=== PATIENT | female | born 1980 | race Caucasian/White ===

== ENCOUNTER 2016-03-15 15:13 | Emergency (ER) | payer SELFPAY ==
[~2016-03-15 15:13] MED LIST: BENZ100C PO; CETI10CA PO; CLON1TAB PO; CYCL10TA2 PO; FLUO40CA9 PO; FLUT9.9S NS; HYDR-2666 PO; HYDR-971 PO; LANS15CA66 PO; NAPR500T PO; ONDA4TAB7 PO; PARO10TA24 PO
[2016-03-15 15:19] VITALS: BP 149/91
--- NOTE | 2016-03-15 15:29 | PHYS DOC ---
Past Medical History Past Medical History: Anxiety, Depression, GERD, Migraines, Other Additional Past Medical Histor: seasonal allergies Past Surgical History: Tonsillectomy, Other Additional Past Surgical Histo: L knee "lateral release", LEFT OVARY CYST REMOVED, WISDOM TEETH Alcohol Use: Occasionally Drug Use: None Adult General Chief Complaint Chief Complaint: KNEE INJURY [facility] HPI Patient is a 35 year old female presents the emergency room with a complaint of left chest wall, left hip and left knee pain secondary to a slip and fall that occurred within an hour and a half prior to arrival here in the emergency department. Patient denies striking her head or loss of consciousness. She denies any previous fractured ribs or hip. She states she is chronically had problems with her left knee. Patient denies any history of bone forming disorders. Review of Systems Review of Systems Constitutional: Denies fever or chills [] Eyes: Denies change in visual acuity, redness, or eye pain [] HENT: Denies nasal congestion or sore throat [] Respiratory: Reports left chest wall pain. Denies shortness of breath. Cardiovascular: No additional information not addressed in HPI [] GI: Denies abdominal pain, nausea, vomiting, bloody stools or diarrhea [] : Denies dysuria or hematuria [] Musculoskeletal: Reports left hip and left knee pain. Integument: Denies rash or skin lesions [] Neurologic: Denies headache, focal weakness or sensory changes [] Endocrine: Denies polyuria or polydipsia [] Allergies Allergies Allergies Coded Allergies Type Severity Reaction Last Updated Verified cinnamon Allergy Severe tongue swelling 12/22/14 Yes morphine Adverse Reaction Intermediate hypertensive urgency/syncope 12/22/14 Yes Physical Exam Physical Exam Constitutional: Well developed, well nourished, no acute distress, non-toxic appearance. Patient walked into the examination room with a steady, unaided gait. HENT: Normocephalic, atraumatic, bilateral external ears normal, oropharynx moist, no oral exudates, nose normal. Eyes: PERRLA, EOMI, conjunctiva normal, no discharge. [] Neck: Normal range of motion, no tenderness, supple, no stridor. Cardiovascular:Heart rate regular rhythm, no murmur [] Lungs & Thorax: Patient's left lateral chest traore without any evidence of injury. There is tenderness to palpation to the posterior lateral region at the level of the fifth through eighth ribs. There is no palpable defect, deformity, instability or crepitus. Patient displays no evidence of respiratory distress or respiratory fatigue. Abdomen: Bowel sounds normal, soft, no tenderness, no masses, no pulsatile masses. [] Skin: Warm, dry, no erythema, no rash. [] Back: No tenderness, no CVA tenderness. [] Extremities: There is tenderness to palpation to the lateral aspect of left hip in her pain and tenderness to the left knee. There is no palpable defect, deformity, instability or crepitus in either region. Extremity is neurovascularly intact. Again, patient is able to bear weight and walk. Neurologic: Alert and oriented X 3, normal motor function, normal sensory function, no focal deficits noted. [] Psychologic: Affect normal, judgement normal, mood normal. [] Current Patient Data Vital Signs Vital Signs Date Time Temp Pulse Resp B/P Pulse Ox O2 Delivery O2 Flow Rate FiO2 03/15/16 15:19 97.6 110 22 97 Room Air 97.6 EKG EKG [] Radiology/Procedures Radiology/Procedures PA and dedicated left rib series were performed with adequate technique. There is no evidence of displaced rib fractures or pneumothorax. 2 views of patient's left hip with AP pelvis were performed with adequate technique. There is no evidence of fracture dislocation patient's pelvis or left hip. 3 views of left knee were performed with adequate technique. There is no evidence of acute bony process or soft tissue swelling. Course & Med Decision Making Course & Med Decision Making Pertinent Labs and Imaging studies reviewed. (See chart for details) [] Dragon Disclaimer Dragon Disclaimer This electronic medical record was generated, in whole or in part, using a voice recognition dictation system. Departure Departure Impression: Primary Impression: Fall Additional Impressions: Chest wall contusion Contusion Disposition: HOME, SELF-CARE Condition: GOOD Referrals: COLBY RAYO (PCP) Patient Instructions: Chest Contusion, [id number], Contusion, Nawn-gy-Laue, Fall Prevention and Home Safety, [id number] Additional Instructions: 1. The x-rays of your chest, left hip/pelvis and left knee here today showed no evidence of bony deformity. The x-rays will be reviewed by radiologist and you will be contacted if there is any discrepancy in these findings. 2. Take the medication as prescribed. 3. Review the discharge instructions provided for self care and reasons to return to the emergency department. 4. Apply ice packs every 2 hours for 20-30 minutes at a time. 5. Call your primary care doctor Thursday morning to schedule follow-up appointment for reevaluation. Scripts Hydrocodone/Apap 5-325 ([place] 5-325 Tablet)1 Each Tablet1 Tab PO PRN Q6HRS PRN PAIN #10 TAB Prov:JOSEPH DURANT 03/15/16 Orphenadrine Citrate 100 Mg Tablet.er100 Mg PO Q12HR muscle relaxer #14 Prov:JOSEPH DURANT 03/15/16 Naproxen Sodium (Anaprox Ds)550 Mg [id number] Mg PO Q12HR #20 Prov:JOSEPH DURANT 03/15/16 Problem Qualifiers Primary Impression: Fall Encounter type: initial encounter Qualified Code: W19.XXXA - Unspecified fall, initial encounter Additional Impressions: Chest wall contusion Encounter type: initial encounter Laterality: left Qualified Code: S20.212A - Contusion of left front wall of thorax, initial encounter Contusion Encounter type: initial encounter Contusion area: hip Laterality: left Qualified Code: S70.02XA - Contusion of left hip, initial encounter JOSEPH DURANT Mar 15, 2016 15:29
[2016-03-15] MEDS ORDERED: ORPH100T PO (16:24)
[2016-03-15] MEDS ORDERED: NAPR550T PO (16:24)
[2016-03-15] MEDS ORDERED: HYDR-971 PO (16:24)
--- NOTE | 2016-03-16 08:28 | RAD ---
Left knee radiographs History: Pain after slip and fall today. Comparison: 05/01/2013. Findings: AP, lateral, and oblique views of the left knee. No acute fracture or dislocation is identified. No joint effusion is seen. Mild tricompartment degeneration is present. Impression: No acute osseous traumatic injury identified.
--- NOTE | 2016-03-16 08:29 | RAD ---
Pelvis and left hip radiographs History: Pain, fall. Comparison: None. Findings: AP view of the pelvis. AP and frog-leg views of left hip. No acute fracture or dislocation is identified. Calcification in the right hemipelvis is favored to be phlebolith. Impression: No acute osseous traumatic injury identified.
--- NOTE | 2016-03-16 08:30 | RAD ---
Exam: PA chest and left rib radiographs, 5 total images History: Pain, fall. Comparison: 10/31/2015. Findings: Cardiomediastinal silhouette is within normal limits for size. Bilateral lung priest are free of focal infiltrate. No pleural effusion is seen. No displaced rib fractures are identified. Impression: No acute cardiopulmonary process.
== END 2016-03-15 16:31 | disposition home or self-care (01) ==
LOC: ER 15:13
DX: S20.219A Contusion of unspecified front wall of thorax, initial encounter (principal); M25.552 Pain in left hip; M25.562 Pain in left knee; K21.9 Gastro-esophageal reflux disease without esophagitis; G43.009 Migraine without aura, not intractable, without status migrainosus; Z88.5 Allergy status to narcotic agent; Z91.018 Allergy to other foods; W01.0XXA Fall on same level from slipping, tripping and stumbling without subsequent striking against object, initial encounter; Y93.89 Activity, other specified; Y99.8 Other external cause status; Y92.89 Other specified places as the place of occurrence of the external cause
CPT/HCPCS: 71101; 73502; 73562; 99284

== ENCOUNTER 2016-03-16 01:57 | Emergency (ER) | payer SELFPAY ==
[~2016-03-16] VITALS: Ht 172.7 cm; Wt 99.8 kg
[~2016-03-16 01:57] MED LIST changes: +NAPR550T PO; +ORPH100T PO
[2016-03-16 02:05] VITALS: BP 147/97
--- NOTE | 2016-03-16 02:21 | PHYS DOC ---
Past Medical History Past Medical History: Anxiety, Depression, GERD, Migraines, Other Additional Past Medical Histor: seasonal allergies Past Surgical History: Tonsillectomy, Other Additional Past Surgical Histo: L knee "lateral release", LEFT OVARY CYST REMOVED, WISDOM TEETH Alcohol Use: Occasionally Drug Use: None Adult General Chief Complaint Chief Complaint: MULTIPLE COMPLAINTS [facility] HPI This is a 35-year-old female who was just seen earlier today after having a fall onto her left side and having significant left rib pain and left hip pain. She had x-rays done at that time which were negative for any acute fracture or abnormality. She was also a given a prescription for hydrocodone, naproxen, and a muscle relaxant. Patient states she has been taking this but still is having continued pain. She presents for reevaluation of her continued pain complaints. She denies any significant change in her symptoms prior to her first evaluation. She denies any chest pain or shortness of breath. She denies any headache. She denies hitting her head or having any loss consciousness with her fall. Review of Systems Review of Systems Constitutional: Denies fever or chills [] Eyes: Denies change in visual acuity, redness, or eye pain [] HENT: Denies nasal congestion or sore throat [] Respiratory: Denies cough or shortness of breath [] Cardiovascular: No additional information not addressed in HPI [] GI: Denies abdominal pain, nausea, vomiting, bloody stools or diarrhea [] : Denies dysuria or hematuria [] Musculoskeletal: Denies back pain, has joint pain [] Integument: Denies rash or skin lesions [] Neurologic: Denies headache, focal weakness or sensory changes [] Endocrine: Denies polyuria or polydipsia [] Allergies Allergies Allergies Coded Allergies Type Severity Reaction Last Updated Verified cinnamon Allergy Severe tongue swelling 12/22/14 Yes morphine Adverse Reaction Intermediate hypertensive urgency/syncope 12/22/14 Yes Physical Exam Physical Exam Constitutional: Well developed, well nourished, no acute distress, non-toxic appearance. [] HENT: Normocephalic, atraumatic, bilateral external ears normal, oropharynx moist, no oral exudates, nose normal. [] Eyes: PERRLA, EOMI, conjunctiva normal, no discharge. [] Neck: Normal range of motion, no tenderness, supple, no stridor. [] Cardiovascular:Heart rate regular rhythm, no murmur [] Lungs & Thorax: Bilateral breath sounds clear to auscultation, moderate tenderness to palpation along the left lateral chest wall with no palpable deformity or crepitus [] Abdomen: Bowel sounds normal, soft, no tenderness, no masses, no pulsatile masses. [] Skin: Warm, dry, no erythema, no rash. [] Back: No tenderness, no CVA tenderness. [] Extremities: Moderate tenderness to the left hip with no palpable deformity or bruising seen, no cyanosis, no clubbing, ROM intact, no edema. [] Neurologic: Alert and oriented X 3, normal motor function, normal sensory function, no focal deficits noted. [] Psychologic: Affect normal, judgement normal, mood normal. [] Current Patient Data Vital Signs Vital Signs Date Time Temp Pulse Resp B/P Pulse Ox O2 Delivery O2 Flow Rate FiO2 03/16/16 02:05 99.0 95 20 98 Room Air 99.0 EKG EKG [] Radiology/Procedures Radiology/Procedures [] Course & Med Decision Making Course & Med Decision Making Pertinent Labs and Imaging studies reviewed. (See chart for details) 35-year-old female who is having continued left rib pain and left hip pain after being evaluated earlier today will be discharged with instruction to continue to take her medications that she was initially prescribed. I will not be prescribing any further pain meds for this patient as she has an adequate supply at this time. I counseled her at length that she is to follow closely in the next several days for her symptoms. She is agreeable to this plan and will rest today and take her medications as prescribed. She was discharged without incident. Dragon Disclaimer Dragon Disclaimer This electronic medical record was generated, in whole or in part, using a voice recognition dictation system. Departure Departure Impression: Primary Impression: Rib pain Additional Impression: Hip pain Disposition: 01 HOME, SELF-CARE Condition: STABLE Referrals: COLBY RAYO (PCP) Patient Instructions: Hip Pain Additional Instructions: Please follow up with your primary doctor in the next 2-3 days for your symptoms. Take your pain medication as prescribed. Return to the ER in the next 2-3 days if your symptoms should worsen. Avoid any strenuous activities. Problem Qualifiers SAE VERA DO Mar 16, 2016 02:21
== END 2016-03-16 02:29 | disposition home or self-care (01) ==
LOC: ER 02:20
DX: R07.81 Pleurodynia (principal); M25.552 Pain in left hip; K21.9 Gastro-esophageal reflux disease without esophagitis; G43.009 Migraine without aura, not intractable, without status migrainosus; F32.9 Major depressive disorder, single episode, unspecified; F41.9 Anxiety disorder, unspecified; Z88.5 Allergy status to narcotic agent; Z91.018 Allergy to other foods
CPT/HCPCS: 99281

== ENCOUNTER 2016-06-18 17:16 | Emergency (ER) | payer SELFPAY ==
[2016-06-18 17:18] VITALS: BP 161/100
--- NOTE | 2016-06-18 17:32 | PHYS DOC ---
Past Medical History Past Medical History: Anxiety, Depression, GERD, Migraines, Other Additional Past Medical Histor: seasonal allergies Past Surgical History: Tonsillectomy, Other Additional Past Surgical Histo: L knee "lateral release", LEFT OVARY CYST REMOVED, WISDOM TEETH Alcohol Use: Occasionally Drug Use: None Adult General Chief Complaint Chief Complaint: HAND PROBLEM HPI HPI Patient is a 36 year old female with history of anxiety, acid reflex and depression who presents today with moderate right lateral hand pain that began 3 weeks ago after bottle of shampoo failed on 8. Review of Systems Review of Systems Constitutional: Denies fever or chills [] Musculoskeletal: Right hand pain Integument: Denies rash or skin lesions [] Neurologic: Denies headache, focal weakness or sensory changes [] Endocrine: Denies polyuria or polydipsia [] Allergies Allergies Allergies Coded Allergies Type Severity Reaction Last Updated Verified cinnamon Allergy Severe tongue swelling 12/22/14 Yes morphine Adverse Reaction Intermediate hypertensive urgency/syncope 12/22/14 Yes Physical Exam Physical Exam Constitutional: Well developed, well nourished, no acute distress, non-toxic appearance. [] Skin: Warm, dry, no erythema, no rash. [] Back: No tenderness, no CVA tenderness. [] Extremities: Right hand with no obvious deformity. Tenderness on palpation of the right fifth metacarpal. Full range of motion to the right hand and fingers. Adequate medial, radial and ulnar sensation to the right hand. +2 right radial pulse. Cap refill less than 2 seconds the right upper extremity. Sensation intact to the right upper extremity. Neurologic: Alert and oriented X 3, normal motor function, normal sensory function, no focal deficits noted. [] Psychologic: Affect normal, judgement normal, mood normal. [] Current Patient Data Vital Signs Vital Signs Date Time Temp Pulse Resp B/P Pulse Ox O2 Delivery O2 Flow Rate FiO2 06/18/16 17:18 97.7 67 18 99 Room Air 97.7 EKG EKG [] Radiology/Procedures Radiology/Procedures [] Course & Med Decision Making Course & Med Decision Making Pertinent Labs and Imaging studies reviewed. (See chart for details) Patient is in the ED with complaints of right hand contusion after bottle of shampoo fell on it 3 weeks ago. Right hand x-rays interpreted by I negative for any acute findings. Patient was discharged with instructions to follow-up with her own orthopedic doctor which she stated she has. Ice/ elevation of the extremity encouraged. Dragon Disclaimer Dragon Disclaimer This electronic medical record was generated, in whole or in part, using a voice recognition dictation system. Departure Departure Impression: Primary Impression: Hand contusion Disposition: 01 HOME, SELF-CARE Condition: STABLE Referrals: COLBY RAYO (PCP) ALFREDO GIVENS II, MD Called the provided orthopedic doctor tomorrow morning and get a follow-up appointment. Patient Instructions: Contusion Additional Instructions: You were seen for right hand contusion after a bottle of shampoo fell on the hand. Your x-ray is normal. Please follow-up with the orthopedic doctor. Ice and elevate the affected extremity. Scripts Methylprednisolone (Medrol)4 Mg Tab.ds.pk1 Pkg PO UD #1 PKG Prov:ISABELA NIXON APRN 06/18/16 Acetaminophen With Codeine (Tylenol With Codeine #3 Tablet)1 Each Tablet1 Tab PO PRN Q6HRS PRN PAIN #10 TAB Prov:ISABELA NIXON APRN 06/18/16 Naproxen 500 Mg Tablet.dr1 Tab PO BID #60 TAB Ref 2 Prov:ISABELA NIXON APRN 06/18/16 Problem Qualifiers Primary Impression: Hand contusion Encounter type: initial encounter Laterality: right Qualified Code: S60.221A - Contusion of right hand, initial encounter ISABELA NIXON APRN Jun 18, 2016 17:32
[2016-06-18] MEDS ORDERED: ACET-704 PO (17:38)
[2016-06-18] MEDS ORDERED: METH4TAB2 PO (17:38)
[2016-06-18] MEDS ORDERED: NAPR500T8 PO (17:38)
--- NOTE | 2016-06-19 08:19 | RAD ---
Indication injury. Pain particularly fifth metacarpal. AP oblique and lateral views of the right hand were obtained. No acute or significant bony finding involving the hand is seen
== END 2016-06-18 17:46 | disposition home or self-care (01) ==
LOC: ER 17:16
DX: S60.221A Contusion of right hand, initial encounter (principal); G43.909 Migraine, unspecified, not intractable, without status migrainosus; Z88.5 Allergy status to narcotic agent; Z91.018 Allergy to other foods; W20.8XXA Other cause of strike by thrown, projected or falling object, initial encounter; Y93.89 Activity, other specified; Y92.89 Other specified places as the place of occurrence of the external cause; Y99.8 Other external cause status
CPT/HCPCS: 73130; 99284

== ENCOUNTER 2016-09-16 18:27 | Emergency (ER) | payer SELFPAY ==
[~2016-09-16] VITALS: Ht 172.7 cm; Wt 99.8 kg
[~2016-09-16 18:27] MED LIST changes: +ACET-704 PO; -HYDR-2666 PO; +HYDR-2758 PO; -LANS15CA66 PO; +LANS15CA78 PO; +METH4TAB2 PO; +NAPR500T8 PO; -PARO10TA24 PO; +PARO10TA57 PO
[2016-09-16 18:51] VITALS: BP 146/87
[2016-09-16] MEDS ORDERED: HYDR-971 PO (19:30)
[2016-09-16] MEDS ORDERED: CYCL10TA2 PO (19:30)
--- NOTE | 2016-09-16 19:30 | PHYS DOC ---
Past Medical History Past Medical History: Anxiety, Depression, GERD, Hypertension, Migraines, Other Additional Past Medical Histor: seasonal allergies Past Surgical History: Tonsillectomy, Other Additional Past Surgical Histo: L knee "lateral release", LEFT OVARY CYST REMOVED, WISDOM TEETH Alcohol Use: Occasionally Drug Use: None Adult General Chief Complaint Chief Complaint: PAIN CONTROL HPI HPI Patient is a 36 year old female with history of anxiety depression and hypertension who presents today with moderate bilateral low back pain that began on Thursday when she fell down on her buttocks. Patient denies any loss of consciousness. She saw her PCP and was given prescription for a muscle relaxer Chlorzoxaxon. Patient states it is not helping. Patient states she has some pain radiating to the left lower extremity. Denies any loss of bowel bladder function, denies any numbness or tingling to bilateral lower extremities. Review of Systems Review of Systems Constitutional: Denies fever or chills [] Eyes: Denies change in visual acuity, redness, or eye pain [] Musculoskeletal: Low back pain Integument: Denies rash or skin lesions [] Neurologic: Denies headache, focal weakness or sensory changes [] Endocrine: Denies polyuria or polydipsia [] Allergies Allergies Allergies Coded Allergies Type Severity Reaction Last Updated Verified cinnamon Allergy Severe tongue swelling 12/22/14 Yes morphine Adverse Reaction Intermediate hypertensive urgency/syncope 12/22/14 Yes Physical Exam Physical Exam Constitutional: Well developed, well nourished, no acute distress, non-toxic appearance. [] HENT: Normocephalic, atraumatic, bilateral external ears normal, oropharynx moist, no oral exudates, nose normal. [] Skin: Warm, dry, no erythema, no rash. [] Back: Diffuse paraspinal muscle tenderness to bilateral lumbar spine, slight coccyx tenderness, no CVA tenderness. [] Extremities: No tenderness, no cyanosis, no clubbing, ROM intact, no edema. [] Neurologic: Alert and oriented X 3, normal motor function, normal sensory function, no focal deficits noted. [] Psychologic: Affect normal, judgement normal, mood normal. [] Current Patient Data Vital Signs Vital Signs Date Time Temp Pulse Resp B/P (MAP) Pulse Ox O2 Delivery O2 Flow Rate FiO2 09/16/16 18:51 97.9 77 20 95 Room Air 97.9 EKG EKG [] Radiology/Procedures Radiology/Procedures [] Course & Med Decision Making Course & Med Decision Making Pertinent Labs and Imaging studies reviewed. (See chart for details) Patient has lumbar contusion after falling a couple days ago. I offered her lumbar x-rays, she declined due to cost. She was given cyclobenzaprine and 10 tablets of [place] and encouraged to take [id number] naproxen. Provided return precautions and discharged in stable condition. Dragon Disclaimer Dragon Disclaimer This electronic medical record was generated, in whole or in part, using a voice recognition dictation system. Departure Departure Impression: Primary Impression: Fall Additional Impressions: Back pain Lumbar contusion Disposition: HOME, SELF-CARE Condition: STABLE Referrals: SID VEGA JR, MD (PCP) Follow-up with your doctor in 1-2 weeks Patient Instructions: Back Pain, Adult, Contusion Additional Instructions: You were seen for low back pain after falling. You can apply heat to ice to the affected area. Follow-up with your doctor in the next 1-2 weeks. Come back to the ED if symptoms worsen. Scripts Cyclobenzaprine Hcl (CYCLOBENZAPRINE HCL) 10 Mg Tablet 1 TAB PO TID, #30 TAB Prov: ISABELA NIXON APRN 09/16/16 Hydrocodone/Apap 5-325 ([place] 5-325 TABLET) 1 Each Tablet 1 TAB PO PRN Q6HRS Y for PAIN, #10 TAB 0 Refills Prov: ISABELA NIXON APRN 09/16/16 Problem Qualifiers Primary Impression: Fall Encounter type: initial encounter Qualified Codes: W19.XXXA - Unspecified fall, initial encounter Additional Impressions: Back pain Back pain location: low back pain Chronicity: acute Back pain laterality: bilateral Sciatica presence: with sciatica Sciatica laterality: sciatica of left side Qualified Codes: M54.42 - Lumbago with sciatica, left side Lumbar contusion Encounter type: initial encounter Qualified Codes: S30.0XXA - Contusion of lower back and pelvis, initial encounter ISABELA NIXON BRUSH HAND Sep 16, 2016 19:30
== END 2016-09-16 19:35 | disposition home or self-care (01) ==
LOC: ER 18:27
DX: S30.0XXA Contusion of lower back and pelvis, initial encounter (principal); I10 Essential (primary) hypertension; K21.9 Gastro-esophageal reflux disease without esophagitis; G43.909 Migraine, unspecified, not intractable, without status migrainosus; Z88.5 Allergy status to narcotic agent; Z91.018 Allergy to other foods; W18.39XA Other fall on same level, initial encounter; Y93.89 Activity, other specified; Y99.8 Other external cause status; Y92.89 Other specified places as the place of occurrence of the external cause
CPT/HCPCS: 99283

== ENCOUNTER 2016-09-19 06:43 | Emergency (ER) | payer SELFPAY ==
[2016-09-19] MEDS ORDERED: IV NORMAL SALINE 1000ML BAG 1,000 ML IV SCH (07:10)
[2016-09-19] MEDS ORDERED: 0.9 % SODIUM CHLORIDE 10 ML DISP.SYRIN. IV PRN (07:15)
--- NOTE | 2016-09-19 07:18 | PHYS DOC ---
Past Medical History Past Medical History: Anxiety, Depression, GERD, Hypertension, Migraines, Other Additional Past Medical Histor: seasonal allergies Past Surgical History: Tonsillectomy, Other Additional Past Surgical Histo: L knee "lateral release", LEFT OVARY CYST REMOVED, WISDOM TEETH Smoking: Cigarettes, 1 Pack Per Day Alcohol Use: Occasionally Drug Use: None Adult General Chief Complaint Chief Complaint: ABDOMINAL PAIN HPI HPI Patient is a pleasant 36-year-old female with a history of left ovarian cyst requiring surgical removal, resides. Umbilical pain that woke up this morning about 3 AM. She describes the pain as constant around the umbilicus with radiation to the right flank. She describes it as sharp and is worse with direct pressure and movement. It has not cried any nausea, vomiting or diarrhea. She has no UTI symptoms. sHe denies any fever, chills, sick contacts, travel outside the country, or prior history of the same. She states that nothing makes anything better. She also claims she is very tired and fatigued and feels generally very weak secondary to sleeping. She was brought in by her mother this morning or see in the lobby. My abdominal pain differential includes but not limited to ectopic , UTI, pyonephritis, cholecystitis, cholelithiasis, pancreatitis, appendicitis, small bowel obstruction, large bowel obstruction, diverticulosis, Diverticulum, intussusception, volvulus, irritable bowel disease, Crohn's or ulcerative colitis,, Review of Systems Review of Systems Constitutional: Denies fever or chills [] Eyes: Denies change in visual acuity, redness, or eye pain [] HENT: Denies nasal congestion or sore throat [] Respiratory: Denies cough or shortness of breath [] Cardiovascular: No additional information not addressed in HPI [] GI: Main complaint is abdominal pain with nausea but no vomiting diarrhea or bloody stools or constipation. : Denies dysuria or hematuria [] Musculoskeletal: Denies back pain or joint pain [] Integument: Denies rash or skin lesions [] Neurologic: Denies headache, focal weakness or sensory changes [] Endocrine: Denies polyuria or polydipsia [] Current Medications Current Medications Current Medications Medications (Trade) Dose Ordered Sig/Claribel Start Time Stop Time Status Last Admin Dose Admin Fentanyl Citrate (Fentanyl 2ml Vial) 50 mcg PRN Q15MIN PRN 09/19/16 07:15 09/20/16 07:14 09/19/16 07:37 50 MCG Iohexol (Omnipaque 300 Mg/ml) 75 ml 1X ONCE 09/19/16 07:30 09/19/16 07:31 DC 09/19/16 09:07 75 ML Lorazepam (Ativan) 1 mg 1X ONCE 09/19/16 07:15 09/19/16 07:16 DC 09/19/16 07:37 1 MG Phenazopyridine HCl (Pyridium) 200 mg 1X ONCE 09/19/16 09:15 09/19/16 09:16 DC 09/19/16 09:15 200 MG Sodium Chloride (Normal Saline Flush) 10 ml QSHIFT PRN 09/19/16 07:15 Allergies Allergies Allergies Coded Allergies Type Severity Reaction Last Updated Verified cinnamon Allergy Severe tongue swelling 12/22/14 Yes morphine Adverse Reaction Intermediate hypertensive urgency/syncope 12/22/14 Yes Physical Exam Physical Exam Vital signs evaluated patient noted to be hypertensive Constitutional: Well developed, well nourished, patient is very anxious but nontoxic in appearance HENT: Normocephalic, atraumatic, bilateral external ears normal, oropharynx moist, no oral exudates, nose normal. [] Eyes: PERRLA, EOMI, conjunctiva normal, no discharge. [] Cardiovascular:Heart rate regular rhythm, no murmur [] Lungs & Thorax: Bilateral breath sounds clear to auscultation [] Abdomen: Bowel sounds normal demonstrates tenderness or umbilical region without involuntary guarding rebound or organomegaly. No noted pulsatile masses. No Brown Louie sign no murmur. Respiratory is. Patient Skin: Warm, dry, no erythema, no rash. [] Back: No tenderness, no CVA tenderness. [] Extremities: No tenderness, no cyanosis, no clubbing, ROM intact, no edema. [] Neurologic: Alert and oriented X 3, normal motor function, normal sensory function, no focal deficits noted. [] Psychologic: She is very anxious speaks very slowly very teary-eyed Current Patient Data Vital Signs Vital Signs Date Time Temp Pulse Resp B/P (MAP) Pulse Ox O2 Delivery O2 Flow Rate FiO2 09/19/16 07:37 18 09/19/16 07:02 98.6 95 140/95 (110) 98 Room Air 98.6 Lab Values Laboratory Tests Test 09/19/16 07:00 09/19/16 07:52 09/19/16 08:45 White Blood Count 9.7 x10^3/uL (4.0-11.0) Red Blood Count 4.97 x10^6/uL (3.50-5.40) Hemoglobin 10.8 g/dL (12.0-15.5) L Hematocrit 34.5 % (36.0-47.0) L Mean Corpuscular Volume 69 fL (79-100) L Mean Corpuscular Hemoglobin 22 pg (25-35) L Mean Corpuscular Hemoglobin Concent 31 g/dL (31-37) Red Cell Distribution Width 18.9 % (11.5-14.5) H Platelet Count 414 x10^3/uL (140-400) H Neutrophils (%) (Auto) 52 % (31-73) Lymphocytes (%) (Auto) 36 % (24-48) Monocytes (%) (Auto) 6 % (0-9) Eosinophils (%) (Auto) 5 % (0-3) H Basophils (%) (Auto) 1 % (0-3) Neutrophils # (Auto) 5.1 x10^3uL (1.8-7.7) Lymphocytes # (Auto) 3.5 x10^3/uL (1.0-4.8) Monocytes # (Auto) 0.6 x10^3/uL (0.0-1.1) Eosinophils # (Auto) 0.5 x10^3/uL (0.0-0.7) Basophils # (Auto) 0.1 x10^3/uL (0.0-0.2) Platelet Estimate Pending Sodium Level 139 mmol/L (136-145) Potassium Level 3.6 mmol/L (3.5-5.1) Chloride Level 101 mmol/L (98-107) Carbon Dioxide Level 28 mmol/L (21-32) Anion Gap 10 (6-14) Blood Urea Nitrogen 13 mg/dL (7-20) Creatinine 0.9 mg/dL (0.6-1.0) Estimated GFR (Cockcroft-Gault) 70.5 Glucose Level 123 mg/dL (70-99) H Calcium Level 9.6 mg/dL (8.5-10.1) Total Bilirubin 0.2 mg/dL (0.2-1.0) Direct Bilirubin 0.1 mg/dL (0.0-0.2) Aspartate Amino Transferase (AST) 14 U/L (15-37) L Alanine Aminotransferase (ALT) 12 U/L (14-59) L Alkaline Phosphatase 88 U/L (46-116) Troponin I Quantitative < 0.017 ng/mL (0.000-0.055) Total Protein 7.9 g/dL (6.4-8.2) Albumin 4.1 g/dL (3.4-5.0) Lipase 157 U/L (73-393) Thyroid Stimulating Hormone (TSH) 2.820 uIU/mL (0.358-3.74) POC Urine HCG, Qualitative Hcg negative (Negative) Urine Collection Type Unknown Urine Color [place] Urine Clarity Clear Urine pH 5.0 Urine Specific [place] >=1.030 Urine Protein Negative mg/dL (NEG-TRACE) Urine Glucose (UA) Negative mg/dL (NEG) Urine Ketones (Stick) Trace mg/dL (NEG) Urine Blood Small (NEG) Urine Nitrite Positive (NEG) Urine Bilirubin Small (NEG) Urine Urobilinogen Dipstick 1.0 mg/dL (0.2 mg/dL) Urine Leukocyte Esterase Small (NEG) Urine RBC 3-5 /HPF (0-2) Urine WBC Occ /HPF (0-4) Urine Squamous Epithelial Cells Mod /LPF Urine Bacteria Few /HPF (0-FEW) Urine Mucus Mod /LPF Laboratory Tests 09/19/16 07:00 Laboratory Tests 09/19/16 07:00 EKG EKG [] EKG timed 7:35 AM 09/19/[address] Edwards demonstrates normal sinus rhythm heart rate of 82 LA interval of 140 QRS 90 QTC of 445 normal sinus rhythm normal looking EKG with some nonspecific T-wave inversions in V1 and some T-wave inversions in lead 3 otherwise normal looking EKG. Radiology/Procedures Radiology/Procedures [] [facility] [address] [place], [place] [id number] IMAGING REPORT Signed PATIENT: BRENDA DE LA TORRE ACCOUNT: [id number] : 1980 LOCATION: ER AGE: 36 SEX: F EXAM STATUS: REG ER ORD. PHYSICIAN: YAHIR EDWARDS MD REASON: periumbilical pain PROCEDURE: CT ABD PELV W/ IV CONTRST ONLY INDICATION: Abdominal pain COMPARISON: 09/15/2015 TECHNIQUE: Axial CT images were obtained through the abdomen and pelvis with intravenous contrast. Coronal reformations were processed. FINDINGS: Abdomen: Chest Base: Partially imaged without gross abnormality. Vessels: No abdominal aortic aneurysm. Liver/Biliary: 18 mm low-attenuation lesion right lobe of liver again seen. No intrahepatic bile duct dilation. Pancreas: No gross abnormality. Spleen: Normal. Kidneys/Adrenal: No hydronephrosis. GI: No free air. No bowel dilation to suggest obstruction. The appendix is not grossly enlarged. Pelvis: Bladder: Partially distended without gross abnormality. Low-attenuation lesion in the right adnexa measuring approximately 76 x 65 mm. Low-attenuation left adnexal lesion measuring approximately 3 cm. IMPRESSION: 1. No evidence of bowel obstruction or appendicitis. 2. Right greater than left low-attenuation adnexal lesions are identified. Would obtain a pelvic ultrasound with transabdominal and transvaginal technique to further evaluate. Could be cystic lesions but given that some of the regions appear higher in attenuation a complex component with either debris or solid portion remains possible. 3. Low attenuation lesion of the right lobe of the liver is again identified and incompletely evaluated on this exam. Focused ultrasound may be helpful to assess whether this is solid or cystic on a nonemergent basis. Alternatively liver MRI could BE obtained PQRS Compliance Statement: One or more of the following individualized dose reduction techniques were utilized for this examination: 1. Automated exposure control 2. Adjustment of the mA and/or kV according to patient size 3. Use of iterative reconstruction technique DICTATED and SIGNED BY: DUSTIN CHRISTENSEN MD DATE: 09/19/16 0934 CC: YAHIR EDWARDS MD; SID VEGA JR, MD ~ Course & Med Decision Making Course & Med Decision Making Pertinent Labs and Imaging studies reviewed. (See chart for details) Time is now 8:05 AM patient's chart was reviewed EKG reviewed, white blood cell count CBC reviewed them straight mild anemia. CMP is been reviewed demonstrate a mild hyperglycemia. Troponin is negative. Through the differential diagnosis for gentle is weakness hypothyroidism as been ruled out, with a normal TSH I doubt cardiac ischemia given duration of symptoms and EKG and negative troponin there is no evidence of hypo or hyperkalemia or other electrolyte abnormality is be contributing to her symptoms. Patient tells me that their symptoms given during CC are improved. 8:50 a.m. patient finally was able to yield a urine sample for us to get a urine test to get a CAT scan completed. Urine hCG is negative doubt ectopic Time is now [address] scan abdomen and pelvis is return if demonstrates no kidney stones, no appendicitis, no bowel obstruction. There is a complex series of lesions within the right ovarian structure. Patient has a known history of ovarian cysts in the past. Patient also has a small nodule within the lower lung bases but noted last time she had a study. It is remarkably unchanged although not completely visualized. In both cases patient should have continued studies such as an ultrasound of her right ovary as an outpatient. Patient tells me that their symptoms given during CC are improved. We reviewed labs and radiology reports with patient specifically went over CAT scan needing ultrasound has a follow-up as an outpatient Impression: Right ovarian cyst, UTI, nonspecific nodules and liver. diPosition: PCP follow-up with empiric antibiotics for UTI. Culture will be sent. Precautions given Dragon Disclaimer Dragon Disclaimer This electronic medical record was generated, in whole or in part, using a voice recognition dictation system. Departure Departure Impression: Primary Impression: Abdominal pain Additional Impression: UTI (urinary tract infection) Disposition: 01 HOME, SELF-CARE Condition: IMPROVED Referrals: SID VEGA JR, MD (PCP) Patient Instructions: Urinary Tract Infection Additional Instructions: Treatment for any new or increasing symptoms or Increasing pain with fever greater than 12.2 despite treatment or if you have any questions or concerns. Scripts Phenazopyridine Hcl (PYRIDIUM) 200 Mg Tablet 200 MG PO TID for 3 Days, #9 TAB Prov: YAHIR EDWARDS MD 09/19/16 Naproxen (NAPROSYN) 500 Mg Tablet 1 TAB PO BID, #14 TAB 1 Refill Prov: YAHIR EDWARDS MD 09/19/16 Ciprofloxacin Hcl (CIPRO) 500 Mg Tablet 1 TAB PO BID, #20 TAB Prov: YAHIR EDWARDS MD 09/19/16 Problem Qualifiers YAHIR EDWARDS MD Sep 19, 2016 07:18
[2016-09-19 07:20] LABS: BASO # 0.1 x10^3/uL (0.0-0.2); BASO % 1 % (0-3); EOS % 5 % (0-3); HEMATOCRIT 34.5 % (36.0-47.0); HEMOGLOBIN 10.8 g/dL (12.0-15.5); LYMPH # 3.5 x10^3/uL (1.0-4.8); LYMPH % 36 % (24-48); MEAN CORPUSCULAR HEMOGLOBIN 22 pg (25-35); MEAN CORPUSCULAR HGB CONC 31 g/dL (31-37); MEAN CORPUSCULAR VOLUME 69 fL (79-100); MONO % 6 % (0-9); NEUT % 52 % (31-73); PLATELET COUNT 414 x10^3/uL (140-400); RED BLOOD COUNT 4.97 x10^6/uL (3.50-5.40); RED CELL DISTRIBUTION WIDTH 18.9 % (11.5-14.5); WHITE BLOOD COUNT 9.7 x10^3/uL (4.0-11.0)
[2016-09-19] MEDS ORDERED: IOHEXOL 300 MG/ML 75 ML VIAL IV ONE (07:30)
[2016-09-19 07:37] LABS: CALCIUM 9.6 mg/dL (8.5-10.1); CREATININE 0.9 mg/dL (0.6-1.0); GFR 70.5; POTASSIUM 3.6 mmol/L (3.5-5.1)
[2016-09-19] MEDS: fentaNYL PF VIAL 100 MCG/2 ML VIAL IV PRN ×2 (07:37→10:00)
[2016-09-19 07:43] LABS: ALBUMIN 4.1 g/dL (3.4-5.0); DIRECT BILIRUBIN 0.1 mg/dL (0.0-0.2); TOTAL BILIRUBIN 0.2 mg/dL (0.2-1.0); TOTAL PROTEIN 7.9 g/dL (6.4-8.2)
[2016-09-19 08:56] LABS: BILIRUBIN,URINE SMALL (NEG); GLUCOSE,URINE NEGATIVE (NEG); NITRITE,URINE POSITIVE (NEG); PROTEIN,URINE NEGATIVE (NEG-TRACE)
[2016-09-19] MEDS ORDERED: PHENAZOPYRIDINE 200 MG TABLET. PO ONE (09:15)
[2016-09-19 09:27] LABS: SQUAMOUS EPITHELIAL CELL,UR MOD /LPF
[2016-09-19 09:28] LABS: WBC,URINE OCC /HPF (0-4)
[2016-09-19 09:42] LABS: BACTERIA,URINE FEW /HPF (0-FEW)
--- NOTE | 2016-09-19 09:46 | RAD ---
INDICATION: Abdominal pain COMPARISON: 09/15/2015 TECHNIQUE: Axial CT images were obtained through the abdomen and pelvis with intravenous contrast. Coronal reformations were processed. FINDINGS: Abdomen: Chest Base: Partially imaged without gross abnormality. Vessels: No abdominal aortic aneurysm. Liver/Biliary: 18 mm low-attenuation lesion right lobe of liver again seen. No intrahepatic bile duct dilation. Pancreas: No gross abnormality. Spleen: Normal. Kidneys/Adrenal: No hydronephrosis. GI: No free air. No bowel dilation to suggest obstruction. The appendix is not grossly enlarged. Pelvis: Bladder: Partially distended without gross abnormality. Low-attenuation lesion in the right adnexa measuring approximately 76 x 65 mm. Low-attenuation left adnexal lesion measuring approximately 3 cm. IMPRESSION: 1. No evidence of bowel obstruction or appendicitis. 2. Right greater than left low-attenuation adnexal lesions are identified. Would obtain a pelvic ultrasound with transabdominal and transvaginal technique to further evaluate. Could be cystic lesions but given that some of the regions appear higher in attenuation a complex component with either debris or solid portion remains possible. 3. Low attenuation lesion of the right lobe of the liver is again identified and incompletely evaluated on this exam. Focused ultrasound may be helpful to assess whether this is solid or cystic on a nonemergent basis. Alternatively liver MRI could BE obtained PQRS Compliance Statement: One or more of the following individualized dose reduction techniques were utilized for this examination: 1. Automated exposure control 2. Adjustment of the mA and/or kV according to patient size 3. Use of iterative reconstruction technique
[2016-09-19 10:01] VITALS: BP 113/59
[2016-09-19] MEDS ORDERED: CIPR500T94 PO (10:07)
[2016-09-19] MEDS ORDERED: NAPR500T PO (10:07)
[2016-09-19] MEDS ORDERED: PHEN-318 PO (10:07)
--- NOTE | 2016-09-19 10:20 | EKG ---
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
[2016-09-19 10:35] LABS: ANISOCYTOSIS SLIGHT; MICROCYTOSIS PRESENT; PLT ESTIMATE ADEQUATE (ADEQUATE)
== END 2016-09-19 10:29 | disposition home or self-care (01) ==
LOC: ER 06:43
DX: N39.0 Urinary tract infection, site not specified (principal); D64.9 Anemia, unspecified; R73.9 Hyperglycemia, unspecified; F41.9 Anxiety disorder, unspecified; F32.9 Major depressive disorder, single episode, unspecified; K21.9 Gastro-esophageal reflux disease without esophagitis; I10 Essential (primary) hypertension; G43.909 Migraine, unspecified, not intractable, without status migrainosus; F17.210 Nicotine dependence, cigarettes, uncomplicated; Z88.5 Allergy status to narcotic agent; Z91.018 Allergy to other foods
CPT/HCPCS: 36415; 74177; 80048; 80076; 81001; 81025; 83690; 84443; 84484; 85007; 85027; 87086; 93005; 96361; 96374; 96375; 96376; 99285; J2060; J3010; J7030; Q9967

== ENCOUNTER 2016-10-08 12:02 | Emergency (ER) | payer SELFPAY ==
[~2016-10-08] VITALS: Ht 172.7 cm; Wt 90.7 kg
[~2016-10-08 12:02] MED LIST changes: +CIPR500T94 PO; +PHEN-318 PO
[2016-10-08 12:20] VITALS: BP 122/67
[2016-10-08] MEDS ORDERED: CYCL10TA2 PO (12:39)
--- NOTE | 2016-10-08 12:40 | PHYS DOC ---
Past Medical History Past Medical History: Anxiety, Depression, GERD, Hypertension, Migraines, Other Additional Past Medical Histor: seasonal allergies Past Surgical History: Tonsillectomy, Other Additional Past Surgical Histo: L knee "lateral release", LEFT OVARY CYST REMOVED, WISDOM TEETH Alcohol Use: Occasionally Drug Use: None Adult General Chief Complaint Chief Complaint: DENTAL PROBLEM [facility] HPI Patient is a 36 year old female presents emergency department stating that she has having right elbow pain and discomfort. She states that this started today when she was outside doing yardwork. She states that she thinks that she needs to have her jaw popped back into place. Patient is able to open and close her mouth without difficulty. Patient states that she has taken tramadol for the pain and discomfort with minimal relief. Patient is requesting Zanaflex, and hydrocodone for pain and discomfort. Review of Systems Review of Systems Constitutional: Denies fever or chills [] Eyes: Denies change in visual acuity, redness, or eye pain [] HENT: Denies nasal congestion or sore throat. Complaint of right jaw pain and discomfort. Respiratory: Denies cough or shortness of breath [] Cardiovascular: No additional information not addressed in HPI [] GI: Denies abdominal pain, nausea, vomiting, bloody stools or diarrhea [] : Denies dysuria or hematuria [] Musculoskeletal: Denies back pain or joint pain [] Integument: Denies rash or skin lesions [] Neurologic: Denies headache, focal weakness or sensory changes [] Endocrine: Denies polyuria or polydipsia [] Allergies Allergies Allergies Coded Allergies Type Severity Reaction Last Updated Verified cinnamon Allergy Severe tongue swelling 12/22/14 Yes morphine Adverse Reaction Intermediate hypertensive urgency/syncope 12/22/14 Yes Physical Exam Physical Exam Constitutional: Well developed, well nourished, no acute distress, non-toxic appearance. [] HENT: Normocephalic, atraumatic, bilateral external ears normal, oropharynx moist, no oral exudates, nose normal. Bilateral tympanic membranes appear to be normal. Patient is able to open and close her mouth without difficulty. She is able to put her come in her teeth together as she has no teeth on the upper mouth area. Patient does have tenderness in the noted at the TMJ area on the right. Eyes: PERRLA, EOMI, conjunctiva normal, no discharge. [] Neck: Normal range of motion, no tenderness, supple, no stridor. [] Cardiovascular:Heart rate regular rhythm, no murmur [] Lungs & Thorax: Bilateral breath sounds clear to auscultation [] Skin: Warm, dry, no erythema, no rash. [] Extremities: No tenderness, no cyanosis, no clubbing, ROM intact, no edema. [] Neurologic: Alert and oriented X 3, normal motor function, normal sensory function, no focal deficits noted. [] Psychologic: Affect normal, judgement normal, mood normal. [] EKG EKG [] Radiology/Procedures Radiology/Procedures [] Course & Med Decision Making Course & Med Decision Making Pertinent Labs and Imaging studies reviewed. (See chart for details) Patient states that she does have tramadol at home in which she can take. Patient states she's been on Flexeril in the past and it doesn't really do anything to help with her discomfort. Patient was explained that we would provide her with a prescription for naproxen in which patient states she has naproxen at home. We'll provide her with a prescription of Flexeril in which she states that she would rather have Zanaflex. Patient is also requesting hydrocodone for pain and discomfort. Explained to patient that she has tramadol at home which should help take care of the pain. We'll still place her on Flexeril as Zanaflex is really not prescribed out of the emergency department. Recommended ice packs on 20 minutes off 20 minutes several times a day. Also recommended the patient follow-up with a dentist for further evaluation of issues with her TMJ. Patient agrees with discharge instructions, treatment regimens and follow-up recommendations. Patient's questions were all answered at the bedside. [] Dragon Disclaimer Dragon Disclaimer This electronic medical record was generated, in whole or in part, using a voice recognition dictation system. Departure Departure Impression: Primary Impression: TMJ (temporomandibular joint disorder) Disposition: 01 HOME, SELF-CARE Condition: STABLE Referrals: SID VEGA JR, MD (PCP) Patient Instructions: Temporomandibular Joint Pain-Brief Additional Instructions: Activity as tolerated. Flexeril will cause drowsiness do not take any be alert and oriented. Tramadol at home will also cause drowsiness do not take any be alert and oriented. Continue to use the naproxen to help with inflammation. This medication should be taken with food to prevent stomach upset. Follow-up with the dentist within the next 3-5 days. Return back to emergency prior signs symptoms of become worse. Scripts Cyclobenzaprine Hcl (CYCLOBENZAPRINE HCL) 10 Mg Tablet 10 MG PO TID Y for MILD PAIN, #20 TAB Prov: HEMANTH DEGROOT APRN 10/08/16 HEMANTH DEGROOT APRN Oct 08, 2016 12:40
== END 2016-10-08 12:45 | disposition home or self-care (01) ==
LOC: ER 12:02
DX: M26.601 Right temporomandibular joint disorder, unspecified (principal); M25.521 Pain in right elbow; K21.9 Gastro-esophageal reflux disease without esophagitis; I10 Essential (primary) hypertension; F41.9 Anxiety disorder, unspecified; G43.909 Migraine, unspecified, not intractable, without status migrainosus; Z88.5 Allergy status to narcotic agent; Z91.018 Allergy to other foods
CPT/HCPCS: 99283

== ENCOUNTER 2016-10-11 16:15 | Emergency (ER) | payer SELFPAY ==
[~2016-10-11] VITALS: Ht 172.7 cm; Wt 90.7 kg
[2016-10-11 16:30] VITALS: BP 142/96
--- NOTE | 2016-10-11 17:46 | RAD ---
EXAM: Head CT without contrast. HISTORY: Fall. TECHNIQUE: Computed tomographic images of the head were obtained without contrast. *One or more of the following individualized dose reduction techniques were utilized for this examination: 1. Automated exposure control. 2. Adjustment of the mA and/or kV according to patient size. 3. Use of iterative reconstruction technique. COMPARISON: 12/22/2014. FINDINGS: There is no acute or subacute extra-axial or intraparenchymal hemorrhage. There is no mass effect or midline shift. There is no hydrocephalus. The richards-white matter differentiation pattern is intact. There is mild paranasal sinus mucosal thickening. The mastoid air cells are clear. No calvarial lesion is seen. IMPRESSION: No acute intracranial findings. Electronically signed by: Chante Henderson MD (10/11/2016 5:43 PM) [facility]
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
[2016-10-11] MEDS ORDERED: ACETAMINOPHEN 500 MG TABLET PO ONE (18:00)
== END 2016-10-11 18:02 | disposition home or self-care (01) ==
LOC: ER 16:15
DX: S09.90XA Unspecified injury of head, initial encounter (principal); F41.9 Anxiety disorder, unspecified; F32.9 Major depressive disorder, single episode, unspecified; K21.9 Gastro-esophageal reflux disease without esophagitis; I10 Essential (primary) hypertension; G43.909 Migraine, unspecified, not intractable, without status migrainosus; Z91.018 Allergy to other foods; Z88.5 Allergy status to narcotic agent; Z88.1 Allergy status to other antibiotic agents; W22.8XXA Striking against or struck by other objects, initial encounter; Y93.89 Activity, other specified; Y92.89 Other specified places as the place of occurrence of the external cause; Y99.8 Other external cause status
CPT/HCPCS: 70450; 81025; 99284-25

== ENCOUNTER 2016-11-30 12:15 | Emergency (ER) | payer SELFPAY ==
[~2016-11-30] VITALS: Ht 172.7 cm; Wt 90.7 kg
[~2016-11-30 12:15] MED LIST changes: +NAPR-682 PO; -NAPR550T PO
--- NOTE | 2016-11-30 12:56 | RAD ---
Left knee 4 views. History: Left knee pain 4 views were taken of the left knee. There is minimal spurring from arthritis. There is no fracture or joint effusion or other acute osseous abnormality. Impression: 1. Minimal spurring from arthritis. 2. Otherwise negative left knee.
--- NOTE | 2016-11-30 13:12 | PHYS DOC ---
Past Medical History Past Medical History: Anxiety, Depression, GERD, Hypertension, Migraines, Other Additional Past Medical Histor: seasonal allergies,CHRONIC KNEE PAIN Past Surgical History: Tonsillectomy, Other Additional Past Surgical Histo: L knee "lateral release", LEFT OVARY CYST REMOVED, WISDOM TEETH Additional Information: SMOKES 2 TO 3 CIGARETTES A DAY Alcohol Use: Occasionally Drug Use: None Adult General Chief Complaint Chief Complaint: KNEE INJURY [facility] HPI Patient is a 36 year old female presents to the emergency department with a hx left knee pain. Patient states that she got up today in her knee had given out. She states that she had lowered herself to the floor. Patient also states that she has a history of knee Issues with the kneecap slides to the side causing her to fall. Patient denies any numbness or tingling down to the lower extremities. Patient states she took ibuprofen and diclofenac for the pain and discomfort. Patient does state that she sees an orthopedic surgeon here in the [place] area however she has not seen on for over 6 months. Patient is requesting a steroid injection at this time. Review of Systems Review of Systems Constitutional: Denies fever or chills [] Eyes: Denies change in visual acuity, redness, or eye pain [] HENT: Denies nasal congestion or sore throat [] Respiratory: Denies cough or shortness of breath [] Cardiovascular: No additional information not addressed in HPI [] GI: Denies abdominal pain, nausea, vomiting, bloody stools or diarrhea [] : Denies dysuria or hematuria [] Musculoskeletal: Denies back pain C/o left knee pain and discomfort Integument: Denies rash or skin lesions [] Neurologic: Denies headache, focal weakness or sensory changes [] Endocrine: Denies polyuria or polydipsia [] Allergies Allergies Allergies Coded Allergies Type Severity Reaction Last Updated Verified cinnamon Allergy Severe tongue swelling 12/22/14 Yes ciprofloxacin Allergy Unknown 10/11/16 Yes morphine Adverse Reaction Intermediate hypertensive urgency/syncope 12/22/14 Yes Physical Exam Physical Exam Constitutional: Well developed, well nourished, no acute distress, non-toxic appearance. [] HENT: Normocephalic, atraumatic, bilateral external ears normal, oropharynx moist, no oral exudates, nose normal. [] Eyes: PERRLA, EOMI, conjunctiva normal, no discharge. [] Neck: Normal range of motion, no tenderness, supple, no stridor. [] Cardiovascular:Heart rate regular rhythm Lungs & Thorax: No respiratory distress noted Skin: Warm, dry, no erythema, no rash. [] Extremities: No tenderness, no cyanosis, no clubbing, ROM intact, no edema. Patient with full range of motion noted of the knee. Negative flatulence been negative Mason negative valgus. Peripheral pulses 2+ cap refill brisk less than 2 seconds. Patient is ambulating with a crutch. Neurologic: Alert and oriented X 3, normal motor function, normal sensory function, no focal deficits noted. [] Psychologic: Affect normal, judgement normal, mood normal. [] Current Patient Data Vital Signs Vital Signs Date Time Temp Pulse Resp B/P (MAP) Pulse Ox O2 Delivery O2 Flow Rate FiO2 11/30/16 13:38 89 20 147/89 (108) 100 Room Air 11/30/16 12:25 99.5 99.5 EKG EKG [] Radiology/Procedures Radiology/Procedures [facility] [address] [place] [address] IMAGING REPORT Signed PATIENT: BRENDA DE LA TORRE ACCOUNT: [id number] : 1980 LOCATION: ER AGE: 36 SEX: F EXAM STATUS: REG ER ORD. PHYSICIAN: HEAMNTH DEGROOT APRN REASON: left knee pain and discomfort PROCEDURE: KNEE LEFT 4V Left knee 4 views. History: Left knee pain 4 views were taken of the left knee. There is minimal spurring from arthritis. There is no fracture or joint effusion or other acute osseous abnormality. Impression: 1. Minimal spurring from arthritis. 2. Otherwise negative left knee. DICTATED and SIGNED BY: BERTRAM BAIG MD DATE: 11/30/16 1259 CC: SID VEGA JR, MD; HEMANTH DEGROOT APRN; NON,STAFF ~ Course & Med Decision Making Course & Med Decision Making Pertinent Labs and Imaging studies reviewed. (See chart for details) Radiology identified mild spurring however they did also identify arthritis. Patient was instructed that she will be discharged home with a continuation of nonsteroidal anti-inflammatories. Patient states she has every known knee device Alvarado wrap for immobilization device possible for the knees. Patient states that she does not need to have any further braces provided. She is requesting once again a steroid injection. Recommended her to follow up with her orthopedic doctor within the next few days. Recommended ice packs on 20 minutes off 20 minutes several times today recommended that she continue to use her nonsteroidal anti-inflammatories at home. Signs and symptoms to return back to emergency department has been provided. All questions and concerns been answered at the patient's bedside. Upon discharge patient has asked if the knee could be wrapped as she does not thing she does it right. She then states she all she wants to do is get sleep recommended benadryl over the counter for sleep aid. [] Dragon Disclaimer Dragon Disclaimer This electronic medical record was generated, in whole or in part, using a voice recognition dictation system. Departure Departure Impression: Primary Impression: Left knee pain Disposition: HOME, SELF-CARE Condition: STABLE Referrals: SID VEGA JR, MD (PCP) Patient Instructions: Knee Pain, [id number] Additional Instructions: Activity as tolerated Ice packs on 20 minutes and off 20 minutes several times a day Elevation as much as possible Use an immobilization device you have at home Followup with orthopedic in the next week Return to emergency department as needed for signs and symptoms that become worse. Scripts [percogesic] No Conflict Check 1 TAB PO Q6HRS Y for PAIN, #10 Prov: HEMANTH DEGROOT APRN 11/30/16 Problem Qualifiers Primary Impression: Left knee pain Chronicity: acute Qualified Codes: M25.562 - Pain in left knee HEMANTH DEGROOT APRN Nov 30, 2016 13:12
[2016-11-30 13:38] VITALS: BP 147/89
[2016-11-30] MEDS ORDERED: percogesic PO (13:45)
== END 2016-11-30 14:00 | disposition home or self-care (01) ==
LOC: ER 12:15
DX: M25.562 Pain in left knee (principal); F41.9 Anxiety disorder, unspecified; F32.9 Major depressive disorder, single episode, unspecified; K21.9 Gastro-esophageal reflux disease without esophagitis; I10 Essential (primary) hypertension; G43.909 Migraine, unspecified, not intractable, without status migrainosus; G89.29 Other chronic pain; F17.210 Nicotine dependence, cigarettes, uncomplicated; Z88.1 Allergy status to other antibiotic agents; Z88.5 Allergy status to narcotic agent; Z91.013 Allergy to seafood
CPT/HCPCS: 73564; 99284

== ENCOUNTER 2017-01-13 20:19 | Emergency (ER) | payer SELFPAY ==
[~2017-01-13] VITALS: Ht 172.7 cm; Wt 90.7 kg
[~2017-01-13 20:19] MED LIST changes: +percogesic PO
[2017-01-13 20:38] VITALS: BP 114/56
--- NOTE | 2017-01-13 21:14 | PHYS DOC ---
Past Medical History Past Medical History: Anxiety, Depression, GERD, High Cholesterol, Hypertension , Migraines, Other Additional Past Medical Histor: seasonal allergies,CHRONIC KNEE PAIN Past Surgical History: Tonsillectomy, Other Additional Past Surgical Histo: L knee "lateral release", LEFT OVARY CYST REMOVED, WISDOM TEETH Alcohol Use: Occasionally Drug Use: None Adult General Chief Complaint Chief Complaint: KNEE INJURY HPI HPI Patient is a 36 year old female with history of anxiety depression and hypertension chronic left knee pain who presents today with 7 out of 10 exacerbation of chronic left knee with no known injury that began today. She states her orthopedic doctor is on occasional for 2 weeks and she was sent to the ED to be evaluated. She is requesting something for pain that is stronger than NSAIDs. She states right now she is on baclofen neck and Tylenol with no relief. She describes the pain as constant throbbing worse on ambulation. She states she is currently using crutches due to the pain. Review of Systems Review of Systems Constitutional: Denies fever or chills [] Musculoskeletal: Chronic left knee pain Integument: Denies rash or skin lesions [] Neurologic: Denies headache, focal weakness or sensory changes [] All other systems were reviewed and found to be within normal limits, except as documented in this note. Current Medications Current Medications Current Medications Medications (Trade) Dose Ordered Sig/Claribel Start Time Stop Time Status Last Admin Dose Admin Dexamethasone Sodium Phosphate (Decadron) 10 mg 1X ONCE 01/13/17 21:30 01/13/17 21:31 Ketorolac Tromethamine (Toradol Im) 60 mg 1X ONCE 01/13/17 21:30 01/13/17 21:31 Allergies Allergies Allergies Coded Allergies Type Severity Reaction Last Updated Verified cinnamon Allergy Severe tongue swelling 12/22/14 Yes ciprofloxacin Allergy Intermediate 01/13/17 Yes morphine Adverse Reaction Intermediate hypertensive urgency/syncope 12/22/14 Yes Physical Exam Physical Exam Constitutional: Well developed, well nourished, no acute distress, non-toxic appearance. [] Skin: Warm, dry, no erythema, no rash. [] Back: No tenderness, no CVA tenderness. [] Extremities: Left knee with no obvious deformity, diffuse soft tissue swelling noted on the anterior aspect of the left knee. Full active as well as passive range of motion to the left knee, negative Nelsy sign and negative Jojo's sign negative anterior. Drawer sign. +2 left pedal pulse. Cap refill less than 2 seconds left toes. Neurologic: Alert and oriented X 3, normal motor function, normal sensory function, no focal deficits noted. [] Psychologic: Affect normal, judgement normal, mood normal. [] Current Patient Data Vital Signs Vital Signs Date Time Temp Pulse Resp B/P (MAP) Pulse Ox O2 Delivery O2 Flow Rate FiO2 01/13/17 20:38 98.5 78 18 100 Room Air 98.5 EKG EKG [] Radiology/Procedures Radiology/Procedures [] Course & Med Decision Making Course & Med Decision Making Pertinent Labs and Imaging studies reviewed. (See chart for details) Patient is in the ED with exacerbation of chronic left knee pain. She is requesting some hydrocodone for her pain. Informed patient there is no indication for her to get hydrocodone for chronic pain. Recommended she follows up with her own orthopedic doctor. Offered her Toradol and Decadron in the ED. She stood up and stated she has to leave she does not want to wait for her pain medications. Amazingly she is ambulating on her both extremities very well. Instructed that follow-up with her own orthopedic doctor as soon as she can. Dragon Disclaimer Dragon Disclaimer This electronic medical record was generated, in whole or in part, using a voice recognition dictation system. Departure Departure Impression: Primary Impression: Chronic pain of left knee Disposition: 01 HOME, SELF-CARE Condition: STABLE Referrals: SID VEGA JR, MD (PCP) ISABELA NIXON APRN Jan 13, 2017 21:14
[2017-01-13] MEDS ORDERED: KETOROLAC 60 MG/2 ML INJ. IM ONE (21:30)
[2017-01-13] MEDS ORDERED: DEXAMETHASONE SOD PHOS 20 MG/5 ML VIAL. IM ONE (21:30)
== END 2017-01-13 21:11 | disposition home or self-care (01) ==
LOC: ER 20:19
DX: G89.29 Other chronic pain (principal); M25.562 Pain in left knee; E78.00 Pure hypercholesterolemia, unspecified; I10 Essential (primary) hypertension; K21.9 Gastro-esophageal reflux disease without esophagitis; G43.909 Migraine, unspecified, not intractable, without status migrainosus; Z88.1 Allergy status to other antibiotic agents; Z88.5 Allergy status to narcotic agent; Z91.018 Allergy to other foods
CPT/HCPCS: 99281

== ENCOUNTER 2017-02-18 14:40 | Emergency (ER) | payer SELFPAY ==
[~2017-02-18] VITALS: Ht 172.7 cm; Wt 90.7 kg
[~2017-02-18 14:40] MED LIST changes: +NAPR-683 PO; -NAPR500T PO
[2017-02-18 15:17] LABS: BASO # 0.1 x10^3/uL (0.0-0.2); BASO % 1 % (0-3); EOS % 1 % (0-3); HEMATOCRIT 33.6 % (36.0-47.0); HEMOGLOBIN 10.4 g/dL (12.0-15.5); LYMPH # 1.7 x10^3/uL (1.0-4.8); LYMPH % 26 % (24-48); MEAN CORPUSCULAR HEMOGLOBIN 20 pg (25-35); MEAN CORPUSCULAR HGB CONC 31 g/dL (31-37); MEAN CORPUSCULAR VOLUME 65 fL (79-100); MONO % 3 % (0-9); NEUT % 70 % (31-73); PLATELET COUNT 474 x10^3/uL (140-400); RED BLOOD COUNT 5.19 x10^6/uL (3.50-5.40); RED CELL DISTRIBUTION WIDTH 19.3 % (11.5-14.5); WHITE BLOOD COUNT 6.6 x10^3/uL (4.0-11.0)
[2017-02-18 15:18] LABS: BILIRUBIN,URINE SMALL (NEG); GLUCOSE,URINE NEGATIVE (NEG); NITRITE,URINE NEGATIVE (NEG); PROTEIN,URINE NEGATIVE (NEG-TRACE); UROBILINOGEN,URINE 0.2 mg/dL (0.2 mg/dL)
[2017-02-18 15:29] LABS: BACTERIA,URINE MODERATE /HPF (0-FEW); RBC,URINE 0 /HPF (0-2); SQUAMOUS EPITHELIAL CELL,UR MOD /LPF
[2017-02-18 15:37] LABS: CALCIUM 9.3 mg/dL (8.5-10.1); CREATININE 0.9 mg/dL (0.6-1.0); GFR 70.5
[2017-02-18 15:42] LABS: PLT ESTIMATE INCREASED (ADEQUATE); TOTAL BILIRUBIN 0.2 mg/dL (0.2-1.0); TOTAL PROTEIN 8.1 g/dL (6.4-8.2)
[2017-02-18 15:43] LABS: ANISOCYTOSIS SLIGHT; HYPOCHROMIA MARKED; MICROCYTOSIS MARKED; OVALOCYTES FEW; POIKILOCYTOSIS SLIGHT
[2017-02-18] MEDS ORDERED: IOHEXOL 300 MG/ML 100ML VIAL. IV ONE (16:15)
[2017-02-18] MEDS ORDERED: IV NORMAL SALINE 1000ML BAG 1,000 ML IV ONE (16:15)
[2017-02-18] MEDS ORDERED: ONDANSETRON PF 4 MG/2 ML VIAL. IV ONE (16:15)
--- NOTE | 2017-02-18 16:48 | RAD ---
CT scan of the abdomen and pelvis with IV contrast: History: Abdominal pain, nausea and vomiting. Comparison:September 19, 2016. Procedure: Contiguous axial images of the abdomen and pelvis were performed after the administration of 100 cc of Omni 300 IV contrast and without oral contrast. Findings: Liver: Vague hypoattenuating lesions in the liver were seen presenting could be cysts or hemangioma.. Spleen: Unremarkable. Pancreas: Unremarkable. Adrenal Glands: Unremarkable. Right Kidney: Unremarkable. Left Kidney: Unremarkable. Aorta: Normal. There is no mass or lymphadenopathy. There is no free air. There is no free fluid. CT pelvis with contrast: The appendix is not well seen. There are multiple masses in the pelvis the cystic masses in the adnexa bilaterally are consistent with ovarian cystic lesions the lesion on the right is the largest measuring 8.9 x 7 x 9 cm (larger than on prior study. The midline solid-appearing lesion could be a uterine fibroid. Impression: Multiple pelvic masses. The adnexal lesions are are likely ovarian cystic lesions and could be benign or malignant. The lesion on the right is larger. Recommend correlation with CA-125.
[2017-02-18 17:32] VITALS: BP 141/73
[2017-02-18] MEDS ORDERED: ONDA4TAB10 SL (17:51)
--- NOTE | 2017-02-18 17:52 | PHYS DOC ---
Past Medical History Past Medical History: Anxiety, Depression, GERD, High Cholesterol, Hypertension , Migraines, Other Additional Past Medical Histor: seasonal allergies,CHRONIC KNEE PAIN Past Surgical History: Tonsillectomy, Other Additional Past Surgical Histo: L knee "lateral release", LEFT OVARY CYST REMOVED, WISDOM TEETH Alcohol Use: Occasionally Drug Use: None Adult General Chief Complaint Chief Complaint: NAUSEA/VOMITING/DIARRHA HPI HPI 36-year-old female presenting to the emergency department with nausea and vomiting and abdominal pain. She reports the pain feels like muscle soreness is generally throughout the abdomen and not focal. Her nausea comes and goes. Her vomitus is nonbilious and nonbloody. She has been having symptoms for about 5 days. She denies fevers or chills. The pain is nonradiating mild intermittent and without alleviating factors. Associated with nausea. Review of systems is negative for chest pain shortness of breath fevers chills. All other review of systems is negative unless otherwise noted in history of present illness. 36-year-old female presenting to the emergency department with nausea and vomiting and abdominal pain. Vital signs unremarkable. Pertinent physical examination findings show soft nontender abdomen. Blood work and CT abdomen pelvis obtained. I discussed the case with Dr. Mccall at 1748 about the patient' s adnexal lesions. He recommends outpatient follow-up within the next 5-6 days with him. On reexamination the patient is feeling better. She does not have any abdominal pain . The patient was then discharged home in stable condition. They were to return if their symptoms worsened or if they were concerned for any reason. [id number] discharge instructions and return precautions were given. Patient's questions were answered to their satisfaction. Patient is comfortable plan. Review of Systems Review of Systems SEE ABOVE. Current Medications Current Medications Current Medications Medications (Trade) Dose Ordered Sig/Claribel Start Time Stop Time Status Last Admin Dose Admin Iohexol (Omnipaque 300 Mg/ml) 75 ml 1X ONCE 02/18/17 16:15 02/18/17 16:16 DC 02/18/17 16:26 75 ML Ondansetron HCl (Zofran) 4 mg 1X ONCE 02/18/17 16:15 02/18/17 16:16 DC 02/18/17 16:34 4 MG Sodium Chloride 1,000 ml @ 1,000 mls/hr 1X ONCE 02/18/17 16:15 02/18/17 17:14 DC 02/18/17 16:34 1,000 MLS/HR Allergies Allergies Allergies Coded Allergies Type Severity Reaction Last Updated Verified cinnamon Allergy Severe tongue swelling 12/22/14 Yes ciprofloxacin Allergy Intermediate 01/13/17 Yes morphine Adverse Reaction Intermediate hypertensive urgency/syncope 12/22/14 Yes Physical Exam Physical Exam SEE ABOVE Constitutional: Well developed, well nourished, no acute distress, non-toxic appearance. HENT: Normocephalic, atraumatic, bilateral external ears normal, oropharynx moist, no oral exudates, nose normal. [] Eyes: PERRLA, EOMI, conjunctiva normal, no discharge. [] Neck: Normal range of motion, no tenderness, supple, no stridor. Cardiovascular:Heart rate regular rhythm, no murmur [] Lungs & Thorax: Bilateral breath sounds clear to auscultation Abdomen: Soft nontender abdomen without rebound tenderness or guarding present. Negative McBurneys point. Negative Ozuna sign. No ecchymosis present. Skin: Warm, dry, no erythema, no rash. [] Back: No tenderness, no CVA tenderness. Extremities: No tenderness, no cyanosis, no clubbing, ROM intact, no edema. [] Neurologic: Alert and oriented X 3, normal motor function, normal sensory function, no focal deficits noted. Psychologic: Affect normal, judgement normal, mood normal. [] Current Patient Data Vital Signs Vital Signs Date Time Temp Pulse Resp B/P (MAP) Pulse Ox O2 Delivery O2 Flow Rate FiO2 02/18/17 17:32 60 141/73 (95) 96 Room Air 02/18/17 15:00 98.5 14 98.5 Lab Values Laboratory Tests Test 02/18/17 15:00 02/18/17 15:05 White Blood Count 6.6 x10^3/uL (4.0-11.0) Red Blood Count 5.19 x10^6/uL (3.50-5.40) Hemoglobin 10.4 g/dL (12.0-15.5) L Hematocrit 33.6 % (36.0-47.0) L Mean Corpuscular Volume 65 fL (79-100) L Mean Corpuscular Hemoglobin 20 pg (25-35) L Mean Corpuscular Hemoglobin Concent 31 g/dL (31-37) Red Cell Distribution Width 19.3 % (11.5-14.5) H Platelet Count 474 x10^3/uL (140-400) H Neutrophils (%) (Auto) 70 % (31-73) Lymphocytes (%) (Auto) 26 % (24-48) Monocytes (%) (Auto) 3 % (0-9) Eosinophils (%) (Auto) 1 % (0-3) Basophils (%) (Auto) 1 % (0-3) Neutrophils # (Auto) 4.6 x10^3uL (1.8-7.7) Lymphocytes # (Auto) 1.7 x10^3/uL (1.0-4.8) Monocytes # (Auto) 0.2 x10^3/uL (0.0-1.1) Eosinophils # (Auto) 0.0 x10^3/uL (0.0-0.7) Basophils # (Auto) 0.1 x10^3/uL (0.0-0.2) Platelet Estimate Increased (ADEQUATE) Hypochromasia Marked Poikilocytosis Slight Anisocytosis Slight Microcytosis Marked Ovalocytes Few Urine Collection Type Unknown Urine Color Yellow Urine Clarity Clear Urine pH 6.0 Urine Specific [place] >=1.030 Urine Protein Negative mg/dL (NEG-TRACE) Urine Glucose (UA) Negative mg/dL (NEG) Urine Ketones (Stick) Trace mg/dL (NEG) Urine Blood Negative (NEG) Urine Nitrite Negative (NEG) Urine Bilirubin Small (NEG) Urine Urobilinogen Dipstick 0.2 mg/dL (0.2 mg/dL) Urine Leukocyte Esterase Small (NEG) Urine RBC 0 /HPF (0-2) Urine WBC 5-10 /HPF (0-4) Urine Squamous Epithelial Cells Mod /LPF Urine Bacteria Moderate /HPF (0-FEW) Urine Mucus Mod /LPF Sodium Level 140 mmol/L (136-145) Potassium Level 4.0 mmol/L (3.5-5.1) Chloride Level 102 mmol/L (98-107) Carbon Dioxide Level 26 mmol/L (21-32) Anion Gap 12 (6-14) Blood Urea Nitrogen 7 mg/dL (7-20) Creatinine 0.9 mg/dL (0.6-1.0) Estimated GFR (Cockcroft-Gault) 70.5 BUN/Creatinine Ratio 8 (6-20) Glucose Level 109 mg/dL (70-99) H Calcium Level 9.3 mg/dL (8.5-10.1) Total Bilirubin 0.2 mg/dL (0.2-1.0) Aspartate Amino Transferase (AST) 11 U/L (15-37) L Alanine Aminotransferase (ALT) 15 U/L (14-59) Alkaline Phosphatase 79 U/L (46-116) Total Protein 8.1 g/dL (6.4-8.2) Albumin 4.0 g/dL (3.4-5.0) Albumin/Globulin Ratio 1.0 (1.0-1.7) Lipase 162 U/L (73-393) POC Urine HCG, Qualitative Hcg negative (Negative) Laboratory Tests 02/18/17 15:00 Laboratory Tests 02/18/17 15:00 EKG EKG [] Radiology/Procedures Radiology/Procedures [] Course & Med Decision Making Course & Med Decision Making Pertinent Labs and Imaging studies reviewed. (See chart for details) [] Dragon Disclaimer Dragon Disclaimer This electronic medical record was generated, in whole or in part, using a voice recognition dictation system. Departure Departure Impression: Primary Impression: Nausea and vomiting Additional Impression: Abdominal pain Disposition: 01 HOME, SELF-CARE Condition: STABLE Referrals: SID VEGA JR, MD (PCP) Patient Instructions: Nausea and Vomiting Additional Instructions: Thank you for allowing us to participate in your care today. Followup with your Dr. Mccall in 5-6 days for ovarian lesions. I have provided you with a copy of the radiology report for which you should bring to your appointment with Dr. Mccall. Call your Primary Doctor tomorrow and inform them of your visit today. If you do not have a primary care provider you can ask for a list of our primary care providers. Return to the emergency department you have any new or concerning findings. This should be evaluated by the primary care physician and any necessary consulting services for continued management within a few days after discharge. Return to emergency room if you have any new or concerning symptoms including but not limited to fever, chills, nausea, vomiting, intractable pain, any new rashes, chest pain, shortness of air, uncontrolled bleeding, difficulty breathing, and/or vision loss. Scripts Ondansetron (ZOFRAN ODT) 4 Mg Tab.rapdis 1 TAB SL PRN Q8HRS Y for NAUSEA, #6 TAB Prov: VLADIMIR MCCLENDON MD 02/18/17 Problem Qualifiers VLADIMIR MCCLENDON MD Feb 18, 2017 17:52
== END 2017-02-18 18:03 | disposition home or self-care (01) ==
LOC: ER 14:40
DX: R11.2 Nausea with vomiting, unspecified (principal); R10.84 Generalized abdominal pain; F41.9 Anxiety disorder, unspecified; F32.9 Major depressive disorder, single episode, unspecified; K21.9 Gastro-esophageal reflux disease without esophagitis; E78.00 Pure hypercholesterolemia, unspecified; I10 Essential (primary) hypertension; G89.29 Other chronic pain; Z88.1 Allergy status to other antibiotic agents; Z88.5 Allergy status to narcotic agent; Z91.018 Allergy to other foods
CPT/HCPCS: 36415; 74177; 80053; 81001; 81025; 83690; 85025; 87086; 96361; 96374; 99285; J2405; J7030; Q9967

== ENCOUNTER 2017-04-19 00:25 | Emergency (ER) | payer SELFPAY ==
[2017-04-19 01:28] LABS: BILIRUBIN,URINE NEGATIVE (NEG); CLARITY,URINE CLEAR; COLOR,URINE YELLOW; GLUCOSE,URINE NEGATIVE (NEG); NITRITE,URINE NEGATIVE (NEG); PROTEIN,URINE NEGATIVE (NEG-TRACE); UROBILINOGEN,URINE 0.2 mg/dL (0.2 mg/dL)
[2017-04-19 01:29] LABS: URINE HCG POC HCG NEGATIVE (Negative)
[2017-04-19 01:34] LABS: BACTERIA,URINE FEW /HPF (0-FEW); RBC,URINE 0 /HPF (0-2); SQUAMOUS EPITHELIAL CELL,UR FEW /LPF
[2017-04-19] MEDS: HYDROcodone/APAP 5/325MG 1 TAB TABLET PO ×2 (01:50)
== END 2017-04-19 01:53 | disposition home or self-care (01) ==
LOC: ER 00:25
DX: G89.29 Other chronic pain (principal); R10.2 Pelvic and perineal pain; F41.9 Anxiety disorder, unspecified; F32.9 Major depressive disorder, single episode, unspecified; K21.9 Gastro-esophageal reflux disease without esophagitis; E78.00 Pure hypercholesterolemia, unspecified; I10 Essential (primary) hypertension; G43.909 Migraine, unspecified, not intractable, without status migrainosus; Z88.1 Allergy status to other antibiotic agents; Z88.5 Allergy status to narcotic agent; Z91.018 Allergy to other foods
CPT/HCPCS: 81001; 81025; 87086; 99284

== ENCOUNTER 2017-10-25 11:40 | Emergency (ER) | payer SELFPAY ==
[~2017-10-25] VITALS: Ht 172.7 cm; Wt 108.9 kg
[~2017-10-25 11:40] MED LIST changes: +ONDA4TAB10 SL
[2017-10-25 12:50] VITALS: BP 143/87
--- NOTE | 2017-10-25 13:52 | RAD ---
EXAM: Cervical spine, 3 views. HISTORY: Pain. COMPARISON: None. FINDINGS: Frontal, lateral and odontoid views of the cervical spine are obtained. There is no listhesis. The vertebral bodies are normal in height and the disc spaces are preserved. IMPRESSION: No acute osseous finding. Electronically signed by: Chante Henderson MD (10/25/2017 1:49 PM) [facility]
[2017-10-25] MEDS ORDERED: IBUP-1060 PO (14:13)
--- NOTE | 2017-10-25 14:15 | PHYS DOC ---
Past Medical History Past Medical History: Hypertension Additional Past Medical Histor: seasonal allergies,CHRONIC KNEE PAIN Past Surgical History: Hysterectomy Additional Past Surgical Histo: L knee "lateral release", LEFT OVARY CYST REMOVED, WISDOM TEETH Alcohol Use: None Drug Use: None Adult General Chief Complaint Chief Complaint: SHOULDER INJURY [facility] HPI Patient is a 37 year old female who presents with right neck pain that is radiating into her arm. She states that she had a hysterectomy on 10/14/2017. She was at home walking across the floor in socks when her feet slipped and she fell landing on her buttocks. She states that she used her right arm to brace herself to get up and developed pain. She states that the injury happened 2 days ago. She states that she is in a great amount of pain. Review of Systems Review of Systems Constitutional: Denies fever or chills [] Eyes: Denies change in visual acuity, redness, or eye pain [] HENT: Denies nasal congestion or sore throat [] Respiratory: Denies cough or shortness of breath [] Cardiovascular: No additional information not addressed in HPI [] GI: Denies abdominal pain, nausea, vomiting, bloody stools or diarrhea [] : Denies dysuria or hematuria [] Musculoskeletal: See history of present illness Integument: Denies rash or skin lesions [] Neurologic: Denies headache, focal weakness or sensory changes [] Endocrine: Denies polyuria or polydipsia [] All other systems were reviewed and found to be within normal limits, except as documented in this note. Current Medications Current Medications Current Medications Medications (Trade) Dose Ordered Sig/Claribel Start Time Stop Time Status Last Admin Dose Admin Acetaminophen/ Hydrocodone Bitart (Lortab 5/325) 1 tab 1X ONCE 10/25/17 14:30 10/25/17 14:31 Allergies Allergies Allergies Coded Allergies Type Severity Reaction Last Updated Verified cinnamon Allergy Severe tongue swelling 12/22/14 Yes ciprofloxacin Allergy Intermediate 01/13/17 Yes morphine Adverse Reaction Intermediate hypertensive urgency/syncope 12/22/14 Yes Physical Exam Physical Exam Constitutional: Well developed, well nourished, no acute distress, non-toxic appearance. [] Neck: decreased range of motion, point spinal tenderness, supple, no stridor. [ ] Cardiovascular:Heart rate regular rhythm, no murmur [] Lungs & Thorax: Bilateral breath sounds clear to auscultation [] Abdomen: Bowel sounds normal, soft, no tenderness, no masses, no pulsatile masses. [] Skin: Warm, dry, no erythema, no rash. [] Back: No tenderness, no CVA tenderness. [] Extremities: Generalized to right arm with no point tenderness or deformity noted with ecchymosis, no cyanosis, no clubbing, ROM intact, no edema. [] Neurologic: Alert and oriented X 3, normal motor function, normal sensory function, no focal deficits noted. [] Psychologic: Affect normal, judgement normal, mood normal. [] Current Patient Data Vital Signs Vital Signs Date Time Temp Pulse Resp B/P (MAP) Pulse Ox O2 Delivery O2 Flow Rate FiO2 10/25/17 12:50 99.0 102 18 143/87 (105) 100 Room Air 99.0 EKG EKG [] Radiology/Procedures Radiology/Procedures []PATIENT: BRENDA DE LA TORRE LACCOUNT: [id number]#: [id number] : 1980 LOCATION: ER AGE: 37 SEX: F EXAM STATUS: REG ER ORD. PHYSICIAN: AKASH SINGH APRN REASON: fall at home PROCEDURE: CERVICAL SPINE 2-3V EXAM: Cervical spine, 3 views. HISTORY: Pain. COMPARISON: None. FINDINGS: Frontal, lateral and odontoid views of the cervical spine are obtained. There is no listhesis. The vertebral bodies are normal in height and the disc spaces are preserved. IMPRESSION: No acute osseous finding. Electronically signed by: Chante Parra MD (10/25/2017 1:49 PM) [facility] DICTATED and SIGNED BY: CHANTE PARRA MD DATE: 10/25/17 1348 Course & Med Decision Making Course & Med Decision Making Pertinent Labs and Imaging studies reviewed. (See chart for details) [] Dragon Disclaimer Dragon Disclaimer This electronic medical record was generated, in whole or in part, using a voice recognition dictation system. Departure Departure Impression: Primary Impression: Fall Additional Impressions: Arm pain Neck pain Disposition: HOME, SELF-CARE Condition: STABLE Referrals: SID VEGA JR, MD (PCP) Patient Instructions: Chronic Pain Management Additional Instructions: Take the medication as directed with food on your stomach. Follow-up with your primary care provider for further evaluation 3 days if not improving or return to the emergency department if worsening. You may use a heating pad for comfort as well. Scripts Ibuprofen (IBUPROFEN) 800 Mg Tablet 800 MG PO PRN Q6HRS PRN for INFLAMMATION, #10 TAB Prov: AKASH SINGH APRN 10/25/17 Problem Qualifiers AKASH SINGH APRN Oct 25, 2017 14:15
[2017-10-25] MEDS ORDERED: HYDROcodone/APAP 5/325MG 1 TAB TABLET PO ONE (14:30)
== END 2017-10-25 14:25 | disposition home or self-care (01) ==
LOC: ER 11:40
DX: M54.2 Cervicalgia (principal); M79.601 Pain in right arm; I10 Essential (primary) hypertension; Z90.710 Acquired absence of both cervix and uterus; Z88.1 Allergy status to other antibiotic agents; Z88.5 Allergy status to narcotic agent; Z91.02 Food additives allergy status; W01.0XXA Fall on same level from slipping, tripping and stumbling without subsequent striking against object, initial encounter; Y93.01 Activity, walking, marching and hiking; Y92.009 Unspecified place in unspecified non-institutional (private) residence as the place of occurrence of the external cause; Y99.8 Other external cause status
CPT/HCPCS: 72040; 99284

== ENCOUNTER 2018-02-12 11:12 | Emergency (ER) | payer SELFPAY ==
[~2018-02-12] VITALS: Ht 172.7 cm; Wt 117.9 kg
[~2018-02-12 11:12] MED LIST changes: -HYDR-2758 PO; +HYDR-2761 PO; +HYDR-3164 PO; -HYDR-971 PO; +IBUP-1060 PO
[2018-02-12 11:31] VITALS: BP 124/67
--- NOTE | 2018-02-12 11:47 | PHYS DOC ---
Past Medical History Past Medical History: Hypertension Additional Past Medical Histor: seasonal allergies,CHRONIC KNEE PAIN Past Surgical History: Hysterectomy Additional Past Surgical Histo: L knee "lateral release", LEFT OVARY CYST REMOVED, WISDOM TEETH Alcohol Use: None Drug Use: None Adult General Chief Complaint Chief Complaint: SHOULDER INJURY [facility] HPI Patient is a 37 year old female who presents to the emergency department with complaints of left shoulder pain after falling. She states earlier in the week she fell landing on her coccyx, at that time she was seen at [facility] and diagnosed with a coccyx injury. Patient is unsure if she injured her arm during this fall therefore imaging was not ordered. She does have tenderness to her upper left extremity as well as posterior shoulder. Minor abrasions noted to left upper extremity. Decreased ROM restricted by pain. No obvious deformity or bruising noted. Denies other injuries or complaints related to fall. Took ibuprofen at 0800 without relief. Pain is 6/10. Review of Systems Review of Systems Constitutional: Denies fever or chills [] Eyes: Denies change in visual acuity, redness, or eye pain [] HENT: Denies nasal congestion or sore throat [] Respiratory: Denies cough or shortness of breath [] Cardiovascular: No additional information not addressed in HPI [] GI: Denies abdominal pain, nausea, vomiting, bloody stools or diarrhea [] : Denies dysuria or hematuria [] Musculoskeletal: Denies back pain or joint pain [] Integument: Denies rash or skin lesions [] Neurologic: Denies headache, focal weakness or sensory changes [] Endocrine: Denies polyuria or polydipsia [] All other systems were reviewed and found to be within normal limits, except as documented in this note. Current Medications Current Medications Current Medications Medications (Trade) Dose Ordered Sig/Claribel Start Time Stop Time Status Last Admin Dose Admin Acetaminophen (Tylenol) 650 mg 1X ONCE 02/12/18 12:00 02/12/18 12:01 DC 02/12/18 12:07 650 MG Allergies Allergies Allergies Coded Allergies Type Severity Reaction Last Updated Verified cinnamon Allergy Severe tongue swelling 12/22/14 Yes ciprofloxacin Allergy Intermediate 01/13/17 Yes morphine Adverse Reaction Intermediate hypertensive urgency/syncope 12/22/14 Yes Physical Exam Physical Exam Constitutional: Well developed, well nourished, no acute distress, non-toxic appearance. [] HENT: Normocephalic, atraumatic, bilateral external ears normal, oropharynx moist, no oral exudates, nose normal. [] Eyes: PERRLA, EOMI, conjunctiva normal, no discharge. [] Neck: Normal range of motion, no tenderness, supple, no stridor. [] Cardiovascular:Heart rate regular rhythm, no murmur [] Lungs & Thorax: Bilateral breath sounds clear to auscultation [] Abdomen: Bowel sounds normal, soft, no tenderness, no masses, no pulsatile masses. [] Skin: Warm, dry, no erythema, no rash. [] Back: No tenderness, no CVA tenderness. [] Extremities: LUE tenderness upon palpation to humeral region, minor abrasions noted. Posterior shoulder tenderness upon palpation. no cyanosis, no clubbing, ROM decreased restricted by pain, no edema. [] Neurologic: Alert and oriented X 3, normal motor function, normal sensory function, no focal deficits noted. [] Psychologic: Affect normal, judgement normal, mood normal. [] Current Patient Data Vital Signs Vital Signs Date Time Temp Pulse Resp B/P (MAP) Pulse Ox O2 Delivery O2 Flow Rate FiO2 02/12/18 11:31 98.0 112 16 124/67 (86) 97 Room Air 98.0 EKG EKG [] Radiology/Procedures Radiology/Procedures [facility] [address] [place] [address] IMAGING REPORT Signed PATIENT: BRENDA DE LA TORRE ACCOUNT: [id number] : 1980 LOCATION: ER AGE: 37 SEX: F EXAM STATUS: REG ER ORD. PHYSICIAN: VLADIMIR MCCLENDON MD REASON: fall, left shoulder pain PROCEDURE: SHOULDER LEFT 1V Left shoulder and humerus radiograph 02/12/2018 11:40 AM INDICATION: Fall Thursday. Left shoulder pain. COMPARISON: None available. TECHNIQUE: Single view of the left shoulder and 3 views of the left humerus are provided. FINDINGS: There is no acute fracture or dislocation. Bone mineralization is within normal limits. Joint spaces are maintained. Regional soft tissues are within normal limits. There is no soft tissue gas or osseous erosion. IMPRESSION: No acute fracture or dislocation. Electronically signed by: Selena Mueller MD (02/12/2018 1:04 PM) [id number] DICTATED and SIGNED BY: SELENA MUELLER MD DATE: 02/12/181302 [facility] [address] [place] [address] IMAGING REPORT Signed PATIENT: BRENDA DE LA TORRE ACCOUNT: [id number] : 1980 LOCATION: ER AGE: 37 SEX: F EXAM STATUS: REG ER ORD. PHYSICIAN: VLADIMIR MCCLENDON MD REASON: fall, left shoulder pain PROCEDURE: HUMERUS LEFT Left shoulder and humerus radiograph 02/12/2018 11:40 AM INDICATION: Fall Thursday. Left shoulder pain. COMPARISON: None available. TECHNIQUE: Single view of the left shoulder and 3 views of the left humerus are provided. FINDINGS: There is no acute fracture or dislocation. Bone mineralization is within normal limits. Joint spaces are maintained. Regional soft tissues are within normal limits. There is no soft tissue gas or osseous erosion. IMPRESSION: No acute fracture or dislocation. Electronically signed by: Selena Mueller MD (02/12/2018 1:04 PM) [id number] DICTATED and SIGNED BY: SELENA MUELLER MD DATE: 02/12/181302 [] Course & Med Decision Making Course & Med Decision Making Pertinent Labs and Imaging studies reviewed. (See chart for details) [] Dragon Disclaimer Dragon Disclaimer This electronic medical record was generated, in whole or in part, using a voice recognition dictation system. Departure Departure Impression: Primary Impression: Fall Additional Impressions: Left shoulder pain Left arm pain Disposition: HOME, SELF-CARE Condition: STABLE Referrals: SID VEGA JR, MD (PCP) Patient Instructions: Arm Sling Use, [id number], Fall Prevention and Home Safety, Rutd-[id number], Shoulder Pain, Vnka-vk-Aoze Additional Instructions: No or limited lifting Use sling as needed Alternatet tylenol/ibuprofen as needed for pain Follow-up with PCP as discussed if pain persists Scripts Ibuprofen (IBUPROFEN) 800 Mg Tablet 800 MG PO PRN Q6HRS PRN for INFLAMMATION for 10 Days, TAB Prov: SOL KHAN [employer]ER[employer]TER HELPER 02/12/18 Problem Qualifiers Primary Impression: Fall Encounter type: initial encounter Qualified Codes: W19.XXXA - Unspecified fall, initial encounter Additional Impressions: Left shoulder pain Chronicity: acute Qualified Codes: M25.512 - Pain in left shoulder SOL KHAN NP Feb 12, 2018 11:47
[2018-02-12] MEDS ORDERED: ACETAMINOPHEN 325 MG TABLET. PO ONE (12:00)
--- NOTE | 2018-02-12 13:08 | RAD ---
Left shoulder and humerus radiograph 02/12/2018 11:40 AM INDICATION: Fall Thursday. Left shoulder pain. COMPARISON: None available. TECHNIQUE: Single view of the left shoulder and 3 views of the left humerus are provided. FINDINGS: There is no acute fracture or dislocation. Bone mineralization is within normal limits. Joint spaces are maintained. Regional soft tissues are within normal limits. There is no soft tissue gas or osseous erosion. IMPRESSION: No acute fracture or dislocation. Electronically signed by: Dora Caceres MD (02/12/2018 1:04 PM) [id number]
[2018-02-12] MEDS ORDERED: IBUP-1060 PO (13:14)
== END 2018-02-12 13:24 | disposition home or self-care (01) ==
LOC: ER 11:12
DX: S40.812A Abrasion of left upper arm, initial encounter (principal); M25.512 Pain in left shoulder; I10 Essential (primary) hypertension; G89.29 Other chronic pain; Z88.5 Allergy status to narcotic agent; Z88.1 Allergy status to other antibiotic agents; Z91.02 Food additives allergy status; Z90.710 Acquired absence of both cervix and uterus; W18.39XA Other fall on same level, initial encounter; Y93.89 Activity, other specified; Y92.89 Other specified places as the place of occurrence of the external cause; Y99.8 Other external cause status
CPT/HCPCS: 73020; 73060; 99283

== ENCOUNTER 2018-02-28 13:16 | Emergency (ER) | payer SELFPAY ==
[~2018-02-28] VITALS: Ht 172.7 cm; Wt 99.8 kg
[2018-02-28 13:43] VITALS: BP 142/86
[2018-02-28] MEDS ORDERED: HYDROcodone/APAP 5/325MG 1 TAB TABLET PO ONE (14:45)
[2018-02-28] MEDS ORDERED: NAPR-514 PO (15:27)
--- NOTE | 2018-02-28 15:28 | PHYS DOC ---
Past Medical History Past Medical History: Anxiety, Depression, Hypertension Additional Past Medical Histor: seasonal allergies,CHRONIC KNEE PAIN Past Surgical History: Hysterectomy Additional Past Surgical Histo: L knee "lateral release", LEFT OVARY CYST REMOVED, WISDOM TEETH Alcohol Use: None Drug Use: None Adult General Chief Complaint Chief Complaint: FACE PAIN HPI HPI Patient is a 37 year old [f__sex] who presents with [] Review of Systems Review of Systems Constitutional: Denies fever or chills [] Eyes: Denies change in visual acuity, redness, or eye pain [] HENT: Denies nasal congestion or sore throat [] Respiratory: Denies cough or shortness of breath [] Cardiovascular: No additional information not addressed in HPI [] GI: Denies abdominal pain, nausea, vomiting, bloody stools or diarrhea [] : Denies dysuria or hematuria [] Musculoskeletal: Denies back pain or joint pain [] Integument: Denies rash or skin lesions [] Neurologic: Denies headache, focal weakness or sensory changes [] Endocrine: Denies polyuria or polydipsia [] All other systems were reviewed and found to be within normal limits, except as documented in this note. Current Medications Current Medications Current Medications Medications (Trade) Dose Ordered Sig/Claribel Start Time Stop Time Status Last Admin Dose Admin Acetaminophen/ Hydrocodone Bitart (Lortab 5/325) 1 tab 1X ONCE 02/28/18 14:45 02/28/18 14:46 DC 02/28/18 14:52 1 TAB Allergies Allergies Allergies Coded Allergies Type Severity Reaction Last Updated Verified cinnamon Allergy Severe tongue swelling 12/22/14 Yes ciprofloxacin Allergy Intermediate 01/13/17 Yes morphine Adverse Reaction Intermediate hypertensive urgency/syncope 12/22/14 Yes Physical Exam Physical Exam Constitutional: Well developed, well nourished, no acute distress, non-toxic appearance. [] HENT: Normocephalic, atraumatic, bilateral external ears normal, oropharynx moist, no oral exudates, nose normal. [] Eyes: PERRLA, EOMI, conjunctiva normal, no discharge. [] Neck: Normal range of motion, no tenderness, supple, no stridor. [] Cardiovascular:Heart rate regular rhythm, no murmur [] Lungs & Thorax: Bilateral breath sounds clear to auscultation [] Abdomen: Bowel sounds normal, soft, no tenderness, no masses, no pulsatile masses. [] Skin: Warm, dry, no erythema, no rash. [] Back: No tenderness, no CVA tenderness. [] Extremities: No tenderness, no cyanosis, no clubbing, ROM intact, no edema. [] Neurologic: Alert and oriented X 3, normal motor function, normal sensory function, no focal deficits noted. [] Psychologic: Affect normal, judgement normal, mood normal. [] Current Patient Data Vital Signs Vital Signs Date Time Temp Pulse Resp B/P (MAP) Pulse Ox O2 Delivery O2 Flow Rate FiO2 02/28/18 14:52 16 99 Room Air 02/28/18 13:43 98.6 106 142/86 (104) 98.6 EKG EKG [] Radiology/Procedures Radiology/Procedures [] Course & Med Decision Making Course & Med Decision Making Pertinent Labs and Imaging studies reviewed. (See chart for details) [] Dragon Disclaimer Dragon Disclaimer This electronic medical record was generated, in whole or in part, using a voice recognition dictation system. Departure Departure Impression: Primary Impression: TMJ (temporomandibular joint disorder) Additional Impression: Left shoulder pain Disposition: HOME, SELF-CARE Condition: STABLE Referrals: SID VEGA JR, MD (PCP) Patient Instructions: Shoulder Pain, [id number], Temporomandibular Joint Pain -Brief Additional Instructions: You refused an x-ray today. Follow-up with your orthopedic doctor for further evaluation of your shoulder pain. Follow-up with your dentist for further evaluation under jaw pain and possibly refitting her upper dentures. Scripts Naproxen (NAPROXEN) 500 Mg Tablet 1 TAB PO BID for 10 Days, #20 TAB 0 Refills do not take ibuprofen or OTC aleve while taking this medication. Prov: KAYLENE HOOPER APRN 02/28/18 Problem Qualifiers Additional Impression: Left shoulder pain Chronicity: unspecified Qualified Codes: M25.512 - Pain in left shoulder KAYLENE HOOPER APRN Feb 28, 2018 15:28
== END 2018-02-28 15:33 | disposition home or self-care (01) ==
LOC: ER 13:16
DX: M26.69 Other specified disorders of temporomandibular joint (principal); M25.512 Pain in left shoulder; I10 Essential (primary) hypertension; F32.9 Major depressive disorder, single episode, unspecified; F41.9 Anxiety disorder, unspecified; G89.29 Other chronic pain; Z90.710 Acquired absence of both cervix and uterus; Z88.5 Allergy status to narcotic agent; Z88.1 Allergy status to other antibiotic agents; Z91.02 Food additives allergy status
CPT/HCPCS: 99282

== ENCOUNTER 2018-05-06 11:22 | Emergency (ER) | payer SELFPAY ==
[~2018-05-06] VITALS: Ht 165.1 cm; Wt 108.9 kg
[~2018-05-06 11:22] MED LIST changes: +NAPR-514 PO; +OXYC1TAB15 PO
[2018-05-06 11:31] VITALS: BP 151/86
[2018-05-06] MEDS ORDERED: LORazepam 0.5 MG TABLET PO ONE (12:00)
--- NOTE | 2018-05-06 12:20 | RAD ---
3 views left knee 05/06/2018 11:46 AM Indication: PATIENT FELL ON ICE 2 DAYS AGO. LARGE BRUISE MEDIAL CONDYLE AREA APPEAR TO BE SWOLLEN. Comparison: None Findings: There is no acute fracture or dislocation. Articular surfaces are uninterrupted. Minimal degenerative medial and lateral compartment osteophytosis noted. Soft tissues demonstrate no acute radiographic abnormality. Impression: No evidence of acute osseous abnormality. Electronically signed by: Juan Pablo Umanzor MD (05/06/2018 12:18 PM) [id number]
--- NOTE | 2018-05-06 12:22 | RAD ---
3 views right foot 05/06/2018 11:46 AM Indication: PATIENT FELL ON ICE 2 DAYS AGO PAIN ANTERIOR FOOT MEDIALLY AND SHE SAID ANKLE PAIN. Comparison: None Findings: There is no acute fracture or dislocation. Articular surfaces are uninterrupted and smooth. Soft tissues are unremarkable. Impression: No evidence of acute osseous abnormality. Electronically signed by: Juan Pablo Umanzor MD (05/06/2018 12:19 PM) [id number]
--- NOTE | 2018-05-06 12:38 | PHYS DOC ---
Past Medical History Past Medical History: Anxiety, Depression, Hypertension Additional Past Medical Histor: seasonal allergies,CHRONIC KNEE PAIN Past Surgical History: Hysterectomy Additional Past Surgical Histo: L knee "lateral release", LEFT OVARY CYST REMOVED, WISDOM TEETH Alcohol Use: None Drug Use: None Adult General Chief Complaint Chief Complaint: MECHANICAL FALL HPI HPI Patient is a 38 year old female who presents the ER for evaluation. Patient reports mechanical fall on ice yesterday. Patient is very inconsistent on what she states is injured. Patient initially reports injury to left knee and the right great toe stating that she is unable to ambulate. Patient then states that she ambulated yesterday without difficulty and did in fact ambulate into the ER. Patient seen in this ED for frequently for falls. Patient denies any abuse and is states that she lives in a safe environment. Patient states from and Tylenol do not control her pain. Patient also states that she has uncontrolled anxiety. She states that she does not have any clonazepam at home to take. She has a prescription of a clonazepam 1 mg #135 filled on May 03. She is intermittently belligerent and difficult to discuss throughout the H&P. Patient also reports bilateral conjunctivitis/pinkeye for the past 1 day. Has had in the past. Does not use contacts. Vision intact. Review of Systems Review of Systems Constitutional: Denies fever or chills [] Eyes: Bilateral eye discharge/itchying. HENT: Denies nasal congestion or sore throat [] Respiratory: Denies cough or shortness of breath [] Cardiovascular: No additional information not addressed in HPI [] GI: Denies abdominal pain, nausea, vomiting, bloody stools or diarrhea [] : Denies dysuria or hematuria [] Musculoskeletal: Denies back pain or joint pain [] Integument: Denies rash or skin lesions [] Neurologic: Denies headache, focal weakness or sensory changes [] Endocrine: Denies polyuria or polydipsia [] All other systems were reviewed and found to be within normal limits, except as documented in this note. Current Medications Current Medications Current Medications Medications (Trade) Dose Ordered Sig/Claribel Start Time Stop Time Status Last Admin Dose Admin Lorazepam (Ativan) 0.25 mg 1X ONCE 05/06/18 12:00 05/06/18 12:01 DC 05/06/18 12:14 0.25 MG Allergies Allergies Allergies Coded Allergies Type Severity Reaction Last Updated Verified cinnamon Allergy Severe tongue swelling 12/22/14 Yes ciprofloxacin Allergy Intermediate 01/13/17 Yes morphine Adverse Reaction Intermediate hypertensive urgency/syncope 12/22/14 Yes Physical Exam Physical Exam Constitutional: obese HENT: Normocephalic, atraumatic, [] Eyes: PERRLA, EOMI, bilateral mild conjunctival erythema/irritation. Mild bilateral clear discharge. Neck: Normal range of motion, Cardiovascular:Heart rate regular rhythm, no murmur [] Lungs & Thorax: Bilateral breath sounds clear to auscultation [] Abdomen: Bowel sounds normal, soft, no tenderness, no masses, no pulsatile masses. [] Skin: Warm, dry, ecchymosis to medial aspect of L thigh Back: No tenderness, no CVA tenderness. [] Extremities: No swelling. Has intact range of motion of lower extremity joints with distraction. During examination patient with inconsistent areas of tenderness including left knee and right great toe. Her DP pulses +2 out of 4. Labs and Neurologic: Alert and oriented X 3, no focal deficits noted. [] Psychologic: Affect normal, judgement normal, mood normal. [] Current Patient Data Vital Signs Vital Signs Date Time Temp Pulse Resp B/P (MAP) Pulse Ox O2 Delivery O2 Flow Rate FiO2 05/06/18 11:31 98.3 105 16 151/86 (107) 95 Room Air 98.3 EKG EKG [] Radiology/Procedures Radiology/Procedures Foot XR Impression: No evidence of acute osseous abnormality. Electronically signed by: Juan Pablo Umanzor MD (05/06/2018 12:19 PM) [id number][] Knee XR Impression: No evidence of acute osseous abnormality. Electronically signed by: Juan Pablo Umanzor MD (05/06/2018 12:18 PM) [facility] Course & Med Decision Making Course & Med Decision Making Pertinent Labs and Imaging studies reviewed. (See chart for details) []1326: Very disruptive during the course of her ER stay. Patient continuously yelling and crying and screaming stating that she is in severe pain and cannot walk. Patient was able to tolerate x-rays without difficulty. Patient was initially refusing x-rays for unclear reason. X-rays with no acute fractures. Patient stating that she is uncontrolled anxiety. Patient has very recent high number of clonazepam filled on May 03. Patient advised to home medications, and scheduled Ibuprofen/Tylenol and follow-up with primary care doctor. Patient tried with prescription for erythromycin eye ointment. Patient continued to yell and scream. Patient was escorted off property by security. At time of leaving patient had a very steady non-antalgic gait. And appeared in no distress. Patient did not take her prescription for erythromycin otic drops with her or any of her discharge paperwork. Dragon Disclaimer Dragon Disclaimer This electronic medical record was generated, in whole or in part, using a voice recognition dictation system. Departure Departure Impression: Primary Impression: Knee pain Additional Impressions: Rib pain Toe pain, right Acute atopic conjunctivitis of both eyes Disposition: HOME, SELF-CARE Condition: STABLE Referrals: SILVIA DAVEY,SID Lewis MD (PCP) Patient Instructions: Contusion, Vuej-[id number]-Ovpm, Knee Pain, [id number]-zr-[id number] Additional Instructions: Thank you for coming to [facility]. Please repeat the attached handouts. Please follow-up with your primary care physician. Return to the ER if your symptoms worsen or you have any other concerns. Continue home medications. Alternate Tylenol and ibuprofen for pain control. Problem Qualifiers EFE FINK DO May 06, 2018 12:38
== END 2018-05-06 13:26 | disposition home or self-care (01) ==
LOC: ER 11:22
DX: S70.12XA Contusion of left thigh, initial encounter (principal); M25.562 Pain in left knee; M79.674 Pain in right toe(s); H10.13 Acute atopic conjunctivitis, bilateral; R07.81 Pleurodynia; F41.9 Anxiety disorder, unspecified; F32.9 Major depressive disorder, single episode, unspecified; G89.29 Other chronic pain; I10 Essential (primary) hypertension; Z90.710 Acquired absence of both cervix and uterus; Z88.5 Allergy status to narcotic agent; Z88.1 Allergy status to other antibiotic agents; Z91.02 Food additives allergy status; W00.0XXA Fall on same level due to ice and snow, initial encounter; Y93.89 Activity, other specified; Y92.89 Other specified places as the place of occurrence of the external cause; Y99.8 Other external cause status
CPT/HCPCS: 73562; 73630; 99283

== ENCOUNTER 2018-07-11 14:58 | Emergency (ER) | payer SELFPAY ==
[~2018-07-11] VITALS: Ht 172.7 cm; Wt 101.2 kg
[2018-07-11 15:05] VITALS: BP 116/60
[2018-07-11] MEDS ORDERED: fentaNYL PF VIAL 100 MCG/2 ML VIAL IM ONE ×2 (15:45→16:45)
[2018-07-11] MEDS ORDERED: ALPRAZolam 0.5 MG TABLET PO ONE (15:45)
[2018-07-11] MEDS ORDERED: methylPREDNISolone SOD SUCC PF 125 MG/2 ML VIAL. IM ONE (16:45)
--- NOTE | 2018-07-11 16:59 | RAD ---
CT HEAD AND CERVICAL SPINE WO Indication: Head and neck pain for 3 weeks. Exposure: One or more of the following individualized dose reduction techniques were utilized for this examination: 1. Automated exposure control 2. Adjustment of the mA and/or kV according to patient size 3. Use of iterative reconstruction technique. Technique: Standard imaging without intravenous contrast. Head: No evidence of acute intracranial hemorrhage, mass effect, midline shift or abnormal extra-axial fluid collection. Brown-white matter distinction is intact. Ventricles and sulci are symmetric. The orbits appear symmetric. No evidence of prominent scalp swelling. There is mucosal thickening and fluid levels within ethmoid and maxillary sinuses, partially seen, as well as the frontal sinus. No acute skull abnormality. IMPRESSION: 1. No evidence of acute intracranial hemorrhage or mass effect. 2. Paranasal sinus disease. Cervical spine: Ring of C1 is intact. Cervico-occipital junction is intact. C1 and C2 are symmetric. No evidence of acute fracture or aggressive bone destruction. Vertebral body height and alignment are intact. The facet joints are maintained. No high-grade central osseous spinal stenosis. Visualized lung apices are clear. No dominant thyroid mass. No evidence of prevertebral soft tissue swelling or hematoma. IMPRESSION: No evidence of acute abnormality. Electronically signed by: Willian Rico MD (07/11/2018 4:56 PM) [facility]
[2018-07-11] MEDS ORDERED: GABA600T PO (17:22)
--- NOTE | 2018-07-11 17:22 | PHYS DOC ---
Past Medical History Past Medical History: Anxiety, Depression, Hypertension Additional Past Medical Histor: seasonal allergies,CHRONIC KNEE PAIN (ISABELA NIXON APRN) Past Surgical History: Hysterectomy Additional Past Surgical Histo: 10/14/17 (ISABELA NIXON APRN) Alcohol Use: None Drug Use: None (ISABELA NIXON APRN) Adult General Chief Complaint Chief Complaint: HEADACHE HPI HPI Patient is a 38 year old female with history of anxiety, hypertension, depression, who presents to the ED today complaining of 10 out of 10 posterior head and neck pain that began 3 weeks ago after she hit her head and neck on the top of a freezer door. She states she had opened the top freezer door and bend over to get in the refrigerator, when she lifted her head up she hit it the freezer door. Denies any loss of consciousness. Describes the pain as throbbing and constant. Denies any loss of consciousness when the injury occurred. She is very emotional currently crying. She is well known to this ED. (ISABELA NIXON APRN) Review of Systems Review of Systems Constitutional: Denies fever or chills [] Eyes: Denies change in visual acuity, redness, or eye pain [] HENT: Denies nasal congestion or sore throat [] Respiratory: Denies cough or shortness of breath [] Cardiovascular: No additional information not addressed in HPI [] GI: Denies abdominal pain, nausea, vomiting, bloody stools or diarrhea [] : Denies dysuria or hematuria [] Musculoskeletal: Reports posterior neck pain, denies mid or low back pain Integument: Denies rash or skin lesions [] Neurologic: Reports posterior head pain, denies focal weakness or sensory changes [] All other systems were reviewed and found to be within normal limits, except as documented in this note. (ISABELA NIXON APRN) Current Medications Current Medications Current Medications Medications (Trade) Dose Ordered Sig/Claribel Start Time Stop Time Status Last Admin Dose Admin Alprazolam (Xanax) 0.5 mg 1X ONCE 07/11/18 15:45 07/11/18 15:46 DC 07/11/18 15:46 0.5 MG Fentanyl Citrate (Fentanyl 2ml Vial) 50 mcg 1X ONCE 07/11/18 16:45 07/11/18 16:46 DC 07/11/18 16:38 50 MCG Methylprednisolone Sodium Succinate (SOLU-Medrol 125MG VIAL) 125 mg 1X ONCE 07/11/18 16:45 07/11/18 16:46 DC 07/11/18 16:39 125 MG (WILLIAN WILSON DO) Allergies Allergies Allergies Coded Allergies Type Severity Reaction Last Updated Verified cinnamon Allergy Severe tongue swelling 12/22/14 Yes ciprofloxacin Allergy Intermediate 01/13/17 Yes morphine Adverse Reaction Intermediate hypertensive urgency/syncope 12/22/14 Yes (WILLIAN WILSON DO) Physical Exam Physical Exam Constitutional: Well developed, well nourished, no acute distress, non-toxic appearance. [] HENT: Normocephalic, atraumatic, bilateral external ears normal, oropharynx moist, no oral exudates, nose normal. [] Eyes: PERRLA, EOMI, conjunctiva normal, no discharge. [] Neck: Normal range of motion, no tenderness, supple, no stridor. [] Cardiovascular:Heart rate regular rhythm, no murmur [] Lungs & Thorax: Bilateral breath sounds clear to auscultation [] Abdomen: Bowel sounds normal, soft, no tenderness, no masses, no pulsatile masses. [] Skin: Warm, dry, no erythema, no rash. [] Back: No tenderness, no CVA tenderness. [] Extremities: No tenderness, no cyanosis, no clubbing, ROM intact, no edema. [] Neurologic: Alert and oriented X 3, normal motor function, normal sensory function, no focal deficits noted. Cranial nerves II through XII intact Psychologic: Very emotional, crying, depressed mood (ISABELA NIXON APRN) Current Patient Data Vital Signs Vital Signs Date Time Temp Pulse Resp B/P (MAP) Pulse Ox O2 Delivery O2 Flow Rate FiO2 07/11/18 17:08 20 07/11/18 15:05 98.1 74 116/60 (78) 96 Room Air 98.1 (WILLIAN WILSON DO) EKG EKG [] (ISABELA NIXON APRN) Radiology/Procedures Radiology/Procedures []PROCEDURE: CT HEAD AND CERVICAL SPINE WO CT HEAD AND CERVICAL SPINE WO Indication: Head and neck pain for 3 weeks. Exposure: One or more of the following individualized dose reduction techniques were utilized for this examination: 1. Automated exposure control 2. Adjustment of the mA and/or kV according to patient size 3. Use of iterative reconstruction technique. Technique: Standard imaging without intravenous contrast. Head: No evidence of acute intracranial hemorrhage, mass effect, midline shift or abnormal extra-axial fluid collection. Brown-white matter distinction is intact. Ventricles and sulci are symmetric. The orbits appear symmetric. No evidence of prominent scalp swelling. There is mucosal thickening and fluid levels within ethmoid and maxillary sinuses, partially seen, as well as the frontal sinus. No acute skull abnormality. IMPRESSION: 1. No evidence of acute intracranial hemorrhage or mass effect. 2. Paranasal sinus disease. Cervical spine: Ring of C1 is intact. Cervico-occipital junction is intact. C1 and C2 are symmetric. No evidence of acute fracture or aggressive bone destruction. Vertebral body height and alignment are intact. The facet joints are maintained. No high-grade central osseous spinal stenosis. Visualized lung apices are clear. No dominant thyroid mass. No evidence of prevertebral soft tissue swelling or hematoma. IMPRESSION: No evidence of acute abnormality. Electronically signed by: Willian Rico MD (07/11/2018 4:56 PM) [facility] DICTATED and SIGNED BY: WILLIAN RICO MD DATE: 07/11/18 1656 (ISABELA NIXON APRN) Course & Med Decision Making Course & Med Decision Making Pertinent Labs and Imaging studies reviewed. (See chart for details) This is a 38-year-old female patient well known to this ED presenting today complaining of posterior head and neck pain after hitting her head and neck on a freezer door. This happened 3 weeks ago, CT of the head and cervical spine are negative. Patient has been emotional throughout her stay in the ED. She is a history of anxiety and depression. She is on her clonazepam. I give her Xanax in the ED. She's been given pain medicine multiple times. She is be very disrespectful to the nurses. Her mother is in the waiting room and refuses to come to the ED to be with the patient because she states patient is not treating her well. She states patient is mean to her. Patient was discharged to home. Encouraged to continue following up with her PCP. Provided return precautions. (ISABELA NIXON APRN) Dragon Disclaimer Dragon Disclaimer This electronic medical record was generated, in whole or in part, using a voice recognition dictation system. (ISABELA NIXON APRN) Departure Departure Impression: Primary Impression: Head contusion Additional Impressions: Acute cervical sprain Depression Anxiety Disposition: HOME, SELF-CARE Condition: STABLE Referrals: SID VEGA JR, MD (PCP) Follow-up in the course of this week Patient Instructions: Contusion, [id number], Depression, Adult Additional Instructions: You were evaluated in the emergency room, your CT of the head and cervical spine are negative. Please continue taking her clonazepam at home. Please follow-up with your doctor in the course of this week. Scripts Gabapentin (NEURONTIN) 600 Mg Tablet 600 MG PO TID for NEUROGENIC PAIN, #30 TAB Prov: ISHANCORNELIAISABELA MEJIA 07/11/18 Attending Signature Attending Signature I have reviewed the PA/TEXTILE DESIGNER's note and plan of care. I was available for consultation as needed during the patient's visit in the emergency department. I agree with the clinical impression, plan, and disposition. (WILLIAN WILSON DO) Problem Qualifiers Primary Impression: Head contusion Encounter type: initial encounter Contusion of head detail: unspecified part of head Qualified Codes: S00.93XA - Contusion of unspecified part of head, initial encounter Additional Impressions: Acute cervical sprain Encounter type: initial encounter Qualified Codes: S13.9XXA - Sprain of joints and ligaments of unspecified parts of neck, initial encounter Depression Depression Type: unspecified Qualified Codes: F32.9 - Major depressive disorder, single episode, unspecified HUSSAINISABELA MEJIA July 11, 2018 17:22 WILLIAN WILSON DO July 13, 2018 01:44
== END 2018-07-11 17:36 | disposition home or self-care (01) ==
LOC: ER 14:58
DX: S16.1XXA Strain of muscle, fascia and tendon at neck level, initial encounter (principal); S00.93XA Contusion of unspecified part of head, initial encounter; R51 Headache; F41.9 Anxiety disorder, unspecified; F32.9 Major depressive disorder, single episode, unspecified; I10 Essential (primary) hypertension; G89.29 Other chronic pain; M25.569 Pain in unspecified knee; Z88.1 Allergy status to other antibiotic agents; Z88.5 Allergy status to narcotic agent; Z91.018 Allergy to other foods; W22.8XXA Striking against or struck by other objects, initial encounter; Y93.89 Activity, other specified; Y92.89 Other specified places as the place of occurrence of the external cause; Y99.8 Other external cause status
CPT/HCPCS: 70450; 72125; 96372; 99284; J2930; J3010

== ENCOUNTER 2018-08-10 19:04 | Emergency (ER) | payer SELFPAY ==
[~2018-08-10] VITALS: Ht 172.7 cm; Wt 113.4 kg
[~2018-08-10 19:04] MED LIST changes: +GABA600T PO
[2018-08-10] MEDS ORDERED: diazePAM 5 MG TABLET PO ONE (20:00)
[2018-08-10] MEDS ORDERED: fentaNYL PF VIAL 100 MCG/2 ML VIAL IM ONE (20:00)
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
[2018-08-10] MEDS ORDERED: METH4TAB2 PO (21:33)
[2018-08-10] MEDS ORDERED: CYCL10TA2 PO (21:33)
[2018-08-10] MEDS ORDERED: DICL50TA4 PO (21:33)
[2018-08-10] MEDS ORDERED: AMOX1TAB61 PO (21:33)
[2018-08-10 21:56] VITALS: BP 102/57
== END 2018-08-10 21:55 | disposition home or self-care (01) ==
LOC: ER 19:04
DX: S33.5XXA Sprain of ligaments of lumbar spine, initial encounter (principal); S23.3XXA Sprain of ligaments of thoracic spine, initial encounter; S13.8XXA Sprain of joints and ligaments of other parts of neck, initial encounter; S00.83XA Contusion of other part of head, initial encounter; G89.29 Other chronic pain; M25.562 Pain in left knee; R51 Headache; F41.9 Anxiety disorder, unspecified; F32.9 Major depressive disorder, single episode, unspecified; I10 Essential (primary) hypertension; Z90.710 Acquired absence of both cervix and uterus; Z88.5 Allergy status to narcotic agent; Z88.1 Allergy status to other antibiotic agents; Z91.02 Food additives allergy status; V43.52XA Car driver injured in collision with other type car in traffic accident, initial encounter; Y93.89 Activity, other specified; Y92.59 Other trade areas as the place of occurrence of the external cause; Y99.8 Other external cause status
CPT/HCPCS: 70450; 72125; 72128; 72131; 96372; 99284; J3010

== ENCOUNTER 2018-08-27 19:33 | Emergency (ER) | payer SELFPAY ==
[~2018-08-27] VITALS: Ht 177.8 cm; Wt 113.4 kg
[~2018-08-27 19:33] MED LIST changes: +AMOX1TAB61 PO; +DICL50TA4 PO
[2018-08-27 19:50] VITALS: BP 131/81
--- NOTE | 2018-08-27 20:31 | PHYS DOC ---
Past Medical History Past Medical History: Anxiety, Depression, Hypertension Additional Past Medical Histor: seasonal allergies,CHRONIC KNEE PAIN (DELMY BHANDARI APRN) Past Surgical History: Hysterectomy Additional Past Surgical Histo: 10/14/17 (DELMY BHANDARI APRN) Alcohol Use: Occasionally Additional Information: DRINKS MONTHLY Drug Use: None Social History Narrative: CLAUDETTE (DELMY BHANDARI APRN) Adult General Chief Complaint Chief Complaint: MECHANICAL FALL HPI HPI Patient is a 38 year old female presents for evaluation after slip and fall in her bathtub this morning. She is unsure whether she lost consciousness but has pain to the right side of her head. Also is complaining of right hip pain. He reports psychiatric history of depression and anxiety, sees a psychiatrist, Dr. Herrera, in [place]. She missed her monthly appointment which was this morning. States that she missed her appointment due to the fall in the bathtub this morning. She denies other concerns. She states that her psychiatrist told her to ask for a psychiatric evaluation at the emergency [facility] to see if they could assist her with psychiatric care. Patient denies suicidal or homicidal ideation. (DELMY BHANDARI APRN) Review of Systems Review of Systems Constitutional: Denies fever or chills [] Eyes: Denies change in visual acuity, redness, or eye pain [] HENT: Denies nasal congestion or sore throat [] Respiratory: Denies cough or shortness of breath [] Cardiovascular: No additional information not addressed in HPI [] GI: Denies abdominal pain, nausea, vomiting, bloody stools or diarrhea [] : Denies dysuria or hematuria [] Musculoskeletal: Right hip pain[] Integument: Denies rash or skin lesions [] Neurologic: Reports headache, denies focal weakness or sensory changes [] Endocrine: Denies polyuria or polydipsia [] All other systems were reviewed and found to be within normal limits, except as documented in this note. (DELMY BHANDARI APRN) Current Medications Current Medications Current Medications Medications (Trade) Dose Ordered Sig/Claribel Start Time Stop Time Status Last Admin Dose Admin Ketorolac Tromethamine (Toradol Im) 30 mg 1X ONCE 08/27/18 21:45 08/27/18 21:46 DC 08/27/18 21:24 30 MG (ALEJANDRA WILSON DO) Allergies Allergies Allergies Coded Allergies Type Severity Reaction Last Updated Verified cinnamon Allergy Severe tongue swelling 12/22/14 Yes ciprofloxacin Allergy Intermediate 01/13/17 Yes morphine Adverse Reaction Intermediate hypertensive urgency/syncope 12/22/14 Yes (ALEJANDRA WILSON DO) Physical Exam Physical Exam Constitutional: Well developed, well nourished, no acute distress, non-toxic appearance, SOMNOLENT [] HENT: Normocephalic, atraumatic, bilateral external ears normal, oropharynx moist, no oral exudates, nose normal. [] Eyes: PERRLA, EOMI, conjunctiva normal, no discharge. [] Neck: Normal range of motion, no tenderness, supple, no stridor. [] Cardiovascular:Heart rate regular rhythm, no murmur [] Lungs & Thorax: Bilateral breath sounds clear to auscultation [] Abdomen: Bowel sounds normal, soft, no tenderness, no masses, no pulsatile masses. [] Skin: Warm, dry, no erythema, no rash. [] Back: No tenderness, no CVA tenderness. [] Extremities: RT HIP PAIN C ROM. [] Neurologic: Alert and oriented X 3, normal motor function, normal sensory function, no focal deficits noted. [] Psychologic:SOMNOLENT, ANSWERS QUESTIONS APPROPRIATELY, judgement normal, mood normal. [] (DELMY BHANDARI APRN) Current Patient Data Vital Signs Vital Signs Date Time Temp Pulse Resp B/P (MAP) Pulse Ox O2 Delivery O2 Flow Rate FiO2 08/27/18 19:50 98.0 88 14 131/81 (98) 92 Room Air 98.0 (ALEJANDRA WILSON DO) Lab Values Laboratory Tests Test 08/27/18 20:10 08/27/18 20:15 Urine Collection Type Unknown Urine Color Yellow Urine Clarity Cloudy Urine pH 5.0 Urine Specific [place] >=1.030 Urine Protein Negative mg/dL (NEG-TRACE) Urine Glucose (UA) Negative mg/dL (NEG) Urine Ketones (Stick) Negative mg/dL (NEG) Urine Blood Negative (NEG) Urine Nitrite Negative (NEG) Urine Bilirubin Small (NEG) Urine Urobilinogen Dipstick 0.2 mg/dL (0.2 mg/dL) Urine Leukocyte Esterase Negative (NEG) Urine RBC Occ /HPF (0-2) Urine WBC Occ /HPF (0-4) Urine Squamous Epithelial Cells Few /LPF Urine Amorphous Sediment Present /HPF Urine Bacteria 0 /HPF (0-FEW) Urine Mucus Mod /LPF Urine Opiates Screen Neg (NEG) Urine Methadone Screen Neg (NEG) Urine Barbiturates Neg (NEG) Urine Phencyclidine Screen Neg (NEG) Urine Amphetamine/Methamphetamine Neg (NEG) Urine Benzodiazepines Screen Pos (NEG) Urine Cocaine Screen Pos (NEG) Urine Cannabinoids Screen Neg (NEG) Urine Ethyl Alcohol Neg (NEG) White Blood Count 6.8 x10^3/uL (4.0-11.0) Red Blood Count 4.83 x10^6/uL (3.50-5.40) Hemoglobin 10.3 g/dL (12.0-15.5) L Hematocrit 32.2 % (36.0-47.0) L Mean Corpuscular Volume 67 fL (79-100) L Mean Corpuscular Hemoglobin 21 pg (25-35) L Mean Corpuscular Hemoglobin Concent 32 g/dL (31-37) Red Cell Distribution Width 19.0 % (11.5-14.5) H Platelet Count 389 x10^3/uL (140-400) Neutrophils (%) (Auto) 51 % (31-73) Lymphocytes (%) (Auto) 37 % (24-48) Monocytes (%) (Auto) 7 % (0-9) Eosinophils (%) (Auto) 5 % (0-3) H Basophils (%) (Auto) 1 % (0-3) Neutrophils # (Auto) 3.5 x10^3uL (1.8-7.7) Lymphocytes # (Auto) 2.5 x10^3/uL (1.0-4.8) Monocytes # (Auto) 0.5 x10^3/uL (0.0-1.1) Eosinophils # (Auto) 0.3 x10^3/uL (0.0-0.7) Basophils # (Auto) 0.1 x10^3/uL (0.0-0.2) Platelet Estimate Adequate (ADEQUATE) Hypochromasia Mod Anisocytosis Slight Microcytosis Marked Ovalocytes Few Sodium Level 136 mmol/L (136-145) Potassium Level 3.9 mmol/L (3.5-5.1) Chloride Level 98 mmol/L (98-107) Carbon Dioxide Level 29 mmol/L (21-32) Anion Gap 9 (6-14) Blood Urea Nitrogen 19 mg/dL (7-20) Creatinine 1.0 mg/dL (0.6-1.0) Estimated GFR (Cockcroft-Gault) 61.7 BUN/Creatinine Ratio 19 (6-20) Glucose Level 100 mg/dL (70-99) H Calcium Level 9.6 mg/dL (8.5-10.1) Total Bilirubin 0.3 mg/dL (0.2-1.0) Aspartate Amino Transferase (AST) 17 U/L (15-37) Alanine Aminotransferase (ALT) 16 U/L (14-59) Alkaline Phosphatase 87 U/L (46-116) Total Protein 7.7 g/dL (6.4-8.2) Albumin 4.0 g/dL (3.4-5.0) Albumin/Globulin Ratio 1.1 (1.0-1.7) Ethyl Alcohol Level < 10 mg/dL (0-10) Laboratory Tests 08/27/18 20:15 Laboratory Tests 08/27/18 20:15 (ALEJANDRA WILSON DO) Lab Values Laboratory Tests Test 08/27/18 20:10 08/27/18 20:15 Urine Collection Type Unknown Urine Color Yellow Urine Clarity Cloudy Urine pH 5.0 Urine Specific [place] >=1.030 Urine Protein Negative mg/dL (NEG-TRACE) Urine Glucose (UA) Negative mg/dL (NEG) Urine Ketones (Stick) Negative mg/dL (NEG) Urine Blood Negative (NEG) Urine Nitrite Negative (NEG) Urine Bilirubin Small (NEG) Urine Urobilinogen Dipstick 0.2 mg/dL (0.2 mg/dL) Urine Leukocyte Esterase Negative (NEG) Urine RBC Occ /HPF (0-2) Urine WBC Occ /HPF (0-4) Urine Squamous Epithelial Cells Few /LPF Urine Amorphous Sediment Present /HPF Urine Bacteria 0 /HPF (0-FEW) Urine Mucus Mod /LPF Urine Opiates Screen Neg (NEG) Urine Methadone Screen Neg (NEG) Urine Barbiturates Neg (NEG) Urine Phencyclidine Screen Neg (NEG) Urine Amphetamine/Methamphetamine Neg (NEG) Urine Benzodiazepines Screen Pos (NEG) Urine Cocaine Screen Pos (NEG) Urine Cannabinoids Screen Neg (NEG) Urine Ethyl Alcohol Neg (NEG) White Blood Count 6.8 x10^3/uL (4.0-11.0) Red Blood Count 4.83 x10^6/uL (3.50-5.40) Hemoglobin 10.3 g/dL (12.0-15.5) L Hematocrit 32.2 % (36.0-47.0) L Mean Corpuscular Volume 67 fL (79-100) L Mean Corpuscular Hemoglobin 21 pg (25-35) L Mean Corpuscular Hemoglobin Concent 32 g/dL (31-37) Red Cell Distribution Width 19.0 % (11.5-14.5) H Platelet Count 389 x10^3/uL (140-400) Neutrophils (%) (Auto) 51 % (31-73) Lymphocytes (%) (Auto) 37 % (24-48) Monocytes (%) (Auto) 7 % (0-9) Eosinophils (%) (Auto) 5 % (0-3) H Basophils (%) (Auto) 1 % (0-3) Neutrophils # (Auto) 3.5 x10^3uL (1.8-7.7) Lymphocytes # (Auto) 2.5 x10^3/uL (1.0-4.8) Monocytes # (Auto) 0.5 x10^3/uL (0.0-1.1) Eosinophils # (Auto) 0.3 x10^3/uL (0.0-0.7) Basophils # (Auto) 0.1 x10^3/uL (0.0-0.2) Platelet Estimate Adequate (ADEQUATE) Hypochromasia Mod Anisocytosis Slight Microcytosis Marked Ovalocytes Few Sodium Level 136 mmol/L (136-145) Potassium Level 3.9 mmol/L (3.5-5.1) Chloride Level 98 mmol/L (98-107) Carbon Dioxide Level 29 mmol/L (21-32) Anion Gap 9 (6-14) Blood Urea Nitrogen 19 mg/dL (7-20) Creatinine 1.0 mg/dL (0.6-1.0) Estimated GFR (Cockcroft-Gault) 61.7 BUN/Creatinine Ratio 19 (6-20) Glucose Level 100 mg/dL (70-99) H Calcium Level 9.6 mg/dL (8.5-10.1) Total Bilirubin 0.3 mg/dL (0.2-1.0) Aspartate Amino Transferase (AST) 17 U/L (15-37) Alanine Aminotransferase (ALT) 16 U/L (14-59) Alkaline Phosphatase 87 U/L (46-116) Total Protein 7.7 g/dL (6.4-8.2) Albumin 4.0 g/dL (3.4-5.0) Albumin/Globulin Ratio 1.1 (1.0-1.7) Ethyl Alcohol Level < 10 mg/dL (0-10) Laboratory Tests 08/27/18 20:15 Laboratory Tests 08/27/18 20:15 (DELMY BHANDARI APRN) EKG EKG [] (DELMY BHANDARI APRN) Radiology/Procedures Radiology/Procedures [] (DELMY BHANDARI APRN) Impressions: PROCEDURE: CT HEAD WO CONTRAST CT head without contrast. PQRS statement: CT scans at this facility use dose reduction including either automated exposure control, iterative reconstructions, and /or weight based radiation dosing via mA and kV modification when appropriate to reduce radiation dose to as low as reasonably achievable. HISTORY: Fall, syncope. COMPARISON: CT head 01/19/2019. TECHNIQUE: 5 mm axial noncontrast imaging skull base to vertex. FINDINGS: No intracranial hemorrhage, mass, hydrocephalus, extra-axial fluid collections or infarction. No acute ischemic change. Imaged orbits, mastoids and bones are unremarkable. Partial opacification mucosal thickening of the ethmoid sinuses. IMPRESSION: No acute intracranial CT abnormality. Ethmoid sinus disease. Electronically signed by: Maverick Hernandez MD (08/27/2018 8:58 PM) [facility] PROCEDURE: HIP RIGHT 2V WITH PELVIS AP pelvis and AP and frog-leg lateral right hip x-rays HISTORY: Fall, right hip pain. FINDINGS: No fracture, dislocation or arthritic change of the pelvis and right hip. No lytic or sclerotic bone lesion evident. The soft tissues are unremarkable. IMPRESSION: No acute osseous injury. Electronically signed by: Maverick Hernandez MD (08/27/2018 9:35 PM) [facility] (DELMY BHANDARI APRN) Course & Med Decision Making Course & Med Decision Making Pertinent Labs and Imaging studies reviewed. (See chart for details) []Patient asked me to look at her left elbow stating that have been swollen for a while, she appears to have a olecranon bursitis, recommend she follow up with primary care doctor, have placed her on anti-inflammatories and Alvarado wrap the extremity. CT head is negative, x-ray of the right hip is negative, discussed with patient likely has a contusion to that hip from the fall in the bathtub. She was able to speak to the PAT team manager of financial who has provided to her follow-up information for Micheline. Please refer to her note for further information regarding the assessment. Patient is not suicidal or homicidal, does not qualify for inpatient psychiatric treatment. She has not requesting inpatient treatment. She is stable for discharge home. (DELMY BHANDARI APRN) Dragon Disclaimer Dragon Disclaimer This electronic medical record was generated, in whole or in part, using a voice recognition dictation system. (DELMY BHANDARI APRN) Departure Departure Impression: Primary Impression: Contusion of hip Additional Impression: Bursitis Disposition: 01 HOME, SELF-CARE Condition: STABLE Referrals: SID VEGA JR, MD (PCP) Patient Instructions: Bursitis, Contusion Attending Signature Attending Signature I have reviewed the PA/WASHER OFF's note and plan of care. I was available for consultation as needed during the visit in the emergency department. I agree with the clinical impression, plan, and disposition. (ALEJANDRA WILSON DO) Problem Qualifiers Primary Impression: Contusion of hip Encounter type: initial encounter Laterality: right Qualified Codes: S70.01XA - Contusion of right hip, initial encounter Additional Impression: Bursitis Bursitis location: elbow Elbow bursitis location: olecranon bursitis Laterality: left Qualified Codes: M70.22 - Olecranon bursitis, left elbow DELMY BHANDARI APRN Aug 27, 2018 20:31 ALEJANDRA WILSON DO Aug 30, 2018 18:01
[2018-08-27 20:34] LABS: BASO # 0.1 x10^3/uL (0.0-0.2); BASO % 1 % (0-3); EOS # 0.3 x10^3/uL (0.0-0.7); EOS % 5 % (0-3); HEMATOCRIT 32.2 % (36.0-47.0); HEMOGLOBIN 10.3 g/dL (12.0-15.5); LYMPH # 2.5 x10^3/uL (1.0-4.8); LYMPH % 37 % (24-48); MEAN CORPUSCULAR HEMOGLOBIN 21 pg (25-35); MEAN CORPUSCULAR HGB CONC 32 g/dL (31-37); MEAN CORPUSCULAR VOLUME 67 fL (79-100); MONO # 0.5 x10^3/uL (0.0-1.1); MONO % 7 % (0-9); NEUT # 3.5 x10^3uL (1.8-7.7); NEUT % 51 % (31-73); PLATELET COUNT 389 x10^3/uL (140-400); RED BLOOD COUNT 4.83 x10^6/uL (3.50-5.40); WHITE BLOOD COUNT 6.8 x10^3/uL (4.0-11.0)
[2018-08-27 20:36] LABS: BILIRUBIN,URINE SMALL (NEG); CLARITY,URINE CLOUDY; COLOR,URINE YELLOW; NITRITE,URINE NEGATIVE (NEG); PROTEIN,URINE NEGATIVE (NEG-TRACE); UROBILINOGEN,URINE 0.2 mg/dL (0.2 mg/dL)
[2018-08-27 20:39] LABS: SQUAMOUS EPITHELIAL CELL,UR FEW /LPF
[2018-08-27 20:40] LABS: AMORPHOUS SEDIMENT,UR PRESENT /HPF; BACTERIA,URINE 0 /HPF (0-FEW); RBC,URINE OCC /HPF (0-2); WBC,URINE OCC /HPF (0-4)
[2018-08-27 20:41] LABS: AMPHETAMINE/METHAMPHETAMINE NEG (NEG); BARBITURATES NEG (NEG); BENZODIAZEPINES POS (NEG); CANNABINOIDS NEG (NEG); COCAINE POS (NEG); METHADONE NEG (NEG); OPIATES NEG (NEG); PHENCYCLIDINE NEG (NEG)
[2018-08-27 20:51] LABS: CALCIUM 9.6 mg/dL (8.5-10.1); GFR 61.7; POTASSIUM 3.9 mmol/L (3.5-5.1)
[2018-08-27 20:57] LABS: ALBUMIN/GLOBULIN RATIO 1.1 (1.0-1.7); TOTAL BILIRUBIN 0.3 mg/dL (0.2-1.0); TOTAL PROTEIN 7.7 g/dL (6.4-8.2)
--- NOTE | 2018-08-27 21:01 | RAD ---
CT head without contrast. PQRS statement: CT scans at this facility use dose reduction including either automated exposure control, iterative reconstructions, and /or weight based radiation dosing via mA and kV modification when appropriate to reduce radiation dose to as low as reasonably achievable. HISTORY: Fall, syncope. COMPARISON: CT head 01/19/2019. TECHNIQUE: 5 mm axial noncontrast imaging skull base to vertex. FINDINGS: No intracranial hemorrhage, mass, hydrocephalus, extra-axial fluid collections or infarction. No acute ischemic change. Imaged orbits, mastoids and bones are unremarkable. Partial opacification mucosal thickening of the ethmoid sinuses. IMPRESSION: No acute intracranial CT abnormality. Ethmoid sinus disease. Electronically signed by: Maverick Hernandez MD (08/27/2018 8:58 PM) [facility]
[2018-08-27 21:18] LABS: ANISOCYTOSIS SLIGHT; HYPOCHROMIA MOD; MICROCYTOSIS MARKED; OVALOCYTES FEW; PLT ESTIMATE ADEQUATE (ADEQUATE)
--- NOTE | 2018-08-27 21:38 | RAD ---
AP pelvis and AP and frog-leg lateral right hip x-rays HISTORY: Fall, right hip pain. FINDINGS: No fracture, dislocation or arthritic change of the pelvis and right hip. No lytic or sclerotic bone lesion evident. The soft tissues are unremarkable. IMPRESSION: No acute osseous injury. Electronically signed by: Maverick Hernandez MD (08/27/2018 9:35 PM) [facility]
[2018-08-27] MEDS ORDERED: KETOROLAC 60 MG/2 ML VIAL. IM ONE (21:45)
[2018-08-27] MEDS ORDERED: DICL50TA4 PO (22:25)
[2018-08-29] MEDS ORDERED: DIPH25CA58 PO (09:18)
[2018-08-29] MEDS ORDERED: ALPR2TAB2 PO (09:24)
== END 2018-08-27 22:40 | disposition home or self-care (01) ==
LOC: ER 19:33
DX: S70.01XA Contusion of right hip, initial encounter (principal); M70.22 Olecranon bursitis, left elbow; F41.9 Anxiety disorder, unspecified; F32.9 Major depressive disorder, single episode, unspecified; I10 Essential (primary) hypertension; G89.29 Other chronic pain; Z90.710 Acquired absence of both cervix and uterus; Z88.5 Allergy status to narcotic agent; Z88.1 Allergy status to other antibiotic agents; Z91.02 Food additives allergy status; W18.2XXA Fall in (into) shower or empty bathtub, initial encounter; Y93.89 Activity, other specified; Y92.89 Other specified places as the place of occurrence of the external cause; Y99.8 Other external cause status
CPT/HCPCS: 36415; 70450; 73502; 80053; 80307; 81001; 85025; 96372; 99285; G0480; J1885

== ENCOUNTER 2020-09-28 19:40 | Emergency (ER) | payer SELFPAY ==
[2019-02-03 15:00] VITALS: BP 138/98
[~2020-09-28 19:40] MED LIST changes: +ALPR2TAB2 PO; +ATEN25TA PO; +CELE100C PO; +CLONAZEPAM1 MG PO; +DIPH25CA58 PO; +GABA600T7 PO; +LANS15CA73 PO; -LANS15CA78 PO; +LIDO1ADH4 TP; +LOSA100T14 PO; +PARO7.5C2 PO; +QUET300T5 PO
--- NOTE | 2020-09-28 20:00 | PHYS DOC ---
Past Medical History Past Medical History: Anxiety, Depression, Hypertension, Other Additional Past Medical Histor: seasonal allergies,CHRONIC KNEE PAIN, DRUG ABUSE Past Surgical History: Hysterectomy Smoking Status: Current Every Day Smoker Alcohol Use: Occasionally Drug Use: None General Adult HPI: HPI: Patient is a 40 year old female who presents after an oxycodone overdose. Reportedly took 30 mg p.o. She became somnolent and ultimately received Narcan. I was called to her room as she was leaving AGAINST MEDICAL ADVICE. She reportedly lives with her mother nearby. She does not have Narcan kit at home. She plans to walk around Review of Systems: Review of Systems: ROS not completed due to patient noncompliance Heart Score: C/O Chest Pain: No Risk Factors: Risk Factors: DM, Current or recent (<one month) smoker, HTN, HLP, family history of CAD, obesity. Risk Scores: Score 0 - 3: 2.5% MACE over next 6 weeks - Discharge Home Score 4 - 6: 20.3% MACE over next 6 weeks - Admit for Clinical Observation Score 7 - 10: 72.7% MACE over next 6 weeks - Early Invasive Strategies Allergies: Allergies: Allergies Coded Allergies Type Severity Reaction Last Updated Verified cinnamon Allergy Severe tongue swelling 12/22/14 Yes ciprofloxacin Allergy Intermediate 01/13/17 Yes morphine Adverse Reaction Intermediate hypertensive urgency/syncope 12/22/14 Yes Physical Exam: PE: Constitutional: Alert. Speaking full sentences.. [] HENT: Normocephalic, atraumatic, [] Eyes: Pupils approximate 4 mm. [] Neck: Normal range of motion[] [] Lungs & Thorax: Normal work of breathing. Normal respiratory rate. Skin: Dry Neurologic: Alert and oriented X 3, normal motor function, normal sensory function, no focal deficits on very gross/cursory exam [] Psychologic: Denies attempts and self EKG: EKG: [] Radiology/Procedures: Radiology/Procedures: [] Course & Med Decision Making: Course & Med Decision Making Pertinent Labs and Imaging studies reviewed. (See chart for details) Patient is a 40-year-old female who presents after 30 mg oxycodone overdose. Received Narcan, and is now at her mental status baseline. I did not get to conduct a full evaluation as the patient was leaving AGAINST MEDICAL ADVICE as I met her. I described to her that Narcan is short acting, and oxycodone is longer acting and that there is a chance that she could rebound and required an additional dose of Narcan. I told her that risks include respiratory arrest and . She states that she understands this and still wants to leave. She has no SI. Feel that I cannot hold her against her will. She is not able to tell me why she was so again staying for a short period of observation. She lives with her mother, and states that her mother is home to look after. She plans to walk to her nearby home. She states that she does not have Narcan at home, but is not interested in receiving a prescription. Conversation witnessed by RN, please see additional documentation. Alka Disclaimer: Alka Disclaimer: This electronic medical record was generated, in whole or in part, using a voice recognition dictation system. Departure Departure Impression: Primary Impression: Opiate overdose Disposition: LEFT AGAINST MEDICAL ADVICE Condition: IMPROVED Referrals: SID VEGA JR, MD (PCP) YON SUTTON MD Sep 28, 2020 20:00
== END 2020-09-28 20:06 | disposition left against medical advice (07) ==
LOC: ER 19:40
DX: T40.2X1A Poisoning by other opioids, accidental (unintentional), initial encounter (principal); I10 Essential (primary) hypertension; G89.29 Other chronic pain; F17.200 Nicotine dependence, unspecified, uncomplicated; Z88.1 Allergy status to other antibiotic agents; Z88.5 Allergy status to narcotic agent; Z91.018 Allergy to other foods; Y92.89 Other specified places as the place of occurrence of the external cause
CPT/HCPCS: 99283

== ENCOUNTER 2021-03-04 17:55 | Emergency (ER) | payer SELFPAY ==
[~2021-03-04] VITALS: Ht 172.7 cm; Wt 116.8 kg
[~2021-03-04 17:55] MED LIST changes: +CYCL10TA19 PO; -CYCL10TA2 PO
[2021-03-04 18:48] VITALS: BP 110/70
== END 2021-03-04 20:47 | disposition left against medical advice (07) ==
LOC: ER 17:55
DX: S22.32XA Fracture of one rib, left side, initial encounter for closed fracture (principal); S22.31XA Fracture of one rib, right side, initial encounter for closed fracture; Z53.21 Procedure and treatment not carried out due to patient leaving prior to being seen by health care provider; W18.39XA Other fall on same level, initial encounter; Y93.89 Activity, other specified; Y92.89 Other specified places as the place of occurrence of the external cause; Y99.8 Other external cause status